=== PATIENT | male | born 1965 | race Caucasian/White ===

== ENCOUNTER 2019-12-26 09:18 | Emergency (ER) | payer OTHER, BC, SELFPAY ==
[2019-12-26 09:26] VITALS: BP 118/72; PULSE 88; RESP 14; TEMP 36.7; O2SAT 99
--- NOTE | 2019-12-26 10:04 | ED.UPPEXIN ---
HPI - Extremity Injury (Upper) General Chief Complaint: Extremity Injury, Upper Stated Complaint: right shoulder pain Time Seen by Provider: 12/26/19 09:36 Source: patient and RN notes reviewed Mode of arrival: ambulatory Limitations: no limitations History of Present Illness HPI narrative: Patient presents today with a 1 to 2-week history of right shoulder pain. Denies Injury, but states he does do heavy lifting at work. Denies numbness or tingling in the arm or hand. Currently rates his pain 8/10, which increases with movement. He has been taking ibuprofen with mild relief. MD complaint: injury to: right and shoulder Related Data Home Medications Medication Instructions Recorded Confirmed atorvastatin 80 mg PO DAILY 12/26/19 12/26/19 clopidogrel [Plavix] 75 mg PO DAILY 12/26/19 12/26/19 lisinopril 5 mg PO BID 12/26/19 12/26/19 nebivolol [Bystolic] 5 mg PO DAILY 12/26/19 12/26/19 rivaroxaban [Xarelto] 20 mg PO DAILY 12/26/19 12/26/19 Allergies Allergy/AdvReac Type Severity Reaction Status Date / Time No Known Allergies Allergy Verified 12/26/19 09:37 Review of Systems Review of Systems: Narrative: CONSTITUTIONAL: Denies body aches, fever, chills, or sweats. EYES: Denies visual changes, redness, or discharge. ENT: Denies rhinorrhea, congestion, sore throat, or otalgia. CARDIOVASCULAR: Denies chest pain, palpitations, or edema. RESPIRATORY: Denies cough or dyspnea. GASTROINTESTINAL: Denies abdominal pain, nausea, vomiting, or diarrhea. GENITOURINARY: Denies dysuria or hematuria. SKIN: Denies rash, itching, or wounds. MUSCULOSKELETAL: Denies back pain, or myalgia. +Right shoulder pain NEUROLOGIC: Denies headache, numbness, tingling, or weakness. PSYCH: Denies depression or anxiety. PMFSH Comments At time of signature, I have reviewed and agree with nursing past medical, surgical, social and family history unless otherwise noted. Please see nursing chart for further information. There is no relevant family history pertinent to the presenting complaint Exam Narrative: Exam Narrative: GENERAL: Well-appearing, well-nourished, and in no acute distress. HEAD: Normocephalic, atraumatic. EYES: EOMI. No redness or drainage. ENT: Mucous membranes pink and moist. NECK: Normal AROM with mild increase pain to right neck. Supple. No lymphadenopathy. No bony Tenderness of the cervical spine. Right paraspinal muscle tenderness. CHEST: No respiratory distress. EXTREMITIES:Right shoulder: Right superior trapezius tenderness to the shoulder area, extending to the Scapular edge. No swelling or ecchymosis noted full range of motion of the shoulder with slight increased pain. Distal sensation intact. Capillary refill normal. Radial pulse normal. Handgrip equal and strong. SKIN: Warm, dry, no rash. Capillary refill normal. Normal skin turgor. NEURO: No focal deficits. Alert and oriented x3. Gait steady. PSYCH: Normal affect. No signs of depression or anxiety. Course Vital Signs Vital signs: Vital Signs Temperature 98.0 F 12/26/19 09:26 Pulse Rate 88 12/26/19 09:26 Respiratory Rate 14 12/26/19 09:26 Blood Pressure 118/72 12/26/19 09:26 Pulse Oximetry 99 12/26/19 09:26 Temperature 98.0 F 12/26/19 09:26 Pulse Rate 88 12/26/19 09:26 Respiratory Rate 14 12/26/19 09:26 Blood Pressure 118/72 12/26/19 09:26 Pulse Oximetry 99 12/26/19 09:26 Reviewed MDM - Extremity Injury (Upper) Differential Diagnosis Differential diagnosis: Likely other (Cervical radiculopathy, shoulder strain, tendinitis, trapezius strain) Critical Care Time Critical Care Time Critical Care Time: No Discharge Plan Discharge Clinical Impression: Strain of right trapezius muscle Qualifiers: Encounter type: initial encounter Qualified Code(s): S46.811A - Strain of other muscles, fascia and tendons at shoulder and upper arm level, right arm, initial encounter Patient Disposition: Home, Self-Care Cond
== END 2019-12-26 10:09 | disposition home or self-care (01) ==
PROVIDERS: Emergency Provider Nurse Practitioner; PCP Internal Medicine
DX: S46.811A Strain of other muscles, fascia and tendons at shoulder and upper arm level, right arm, initial encounter (principal); X58.XXXA Exposure to other specified factors, initial encounter; I25.10 Atherosclerotic heart disease of native coronary artery without angina pectoris; E78.00 Pure hypercholesterolemia, unspecified; I10 Essential (primary) hypertension; I25.2 Old myocardial infarction; Z95.5 Presence of coronary angioplasty implant and graft; Z95.820 Peripheral vascular angioplasty status with implants and grafts
CPT/HCPCS: 99213; G0463

== ENCOUNTER 2022-12-02 10:18 | Outpatient (CLI) | payer OTHER, SELFPAY ==
[2022-12-02 18:38] LABS: Basophils Absolute Auto 0.1 K/mm3 (0.0-0.1); Basophils Percent Auto 0.9 % (0.2-1.2); Eosinophils Absolute Auto 0.2 K/mm3 (0-0.3); Eosinophils Percent Auto 2.1 % (0-4.4); Hematocrit 49.9 % (42.0-52.0); Hemoglobin 15.6 g/dL (14.0-18.0); Immature Granulocyte Absolute 0.15 K/mm3 (0.00-0.031); Immature Granulocyte Percent A 1.8 % (0-0.5); Lymphocytes Absolute Auto 1.84 K/mm3 (0.9-3.2); Lymphocytes Percent Auto 22.6 % (18.3-44.2); Mean Corpuscular HGB Conc 31.3 g/dl (32-36); Mean Corpuscular Hemoglobin 29.1 pg (26-34); Mean Corpuscular Volume 92.9 fl (80-100); Monocytes Absolute Auto 0.5 K/mm3 (0.1-0.6); Monocytes Percent Auto 6.1 % (2.6-8.5); Neutrophils Absolute Auto 5.4 K/mm3 (1.3-6.7); Neutrophils Percent Auto 66.5 % (45.5-73.1); Platelet Count Result 201 k/mm3 (150-375); Red Blood Count 5.37 M/mm3 (4.6-6.20); Red Cell Distribution Width 16.6 % (11.5-14.5); White Blood Count 8.1 K/mm3 (4.5-10.0)
[2022-12-02 19:56] LABS: Alanine Aminotransferase 40 U/L (6-50); Albumin Level 4.1 g/dL (3.5-5.1); Alkaline Phosphatase 114 U/L (38-126); Anion Gap 9 mmol/L (8-16); Aspartate Amino Transferase 109 U/L (17-59); Bilirubin,Total 0.8 mg/dL (0.2-1.3); Blood Urea Nitrogen 10 mg/dL (9-20); Calcium 9.6 mg/dL (8.4-10.2); Carbon Dioxide 30 mmol/L (22-30); Chloride 102 mmol/L (98-107); Cholesterol 79 mg/dL (0-200); Estimated Glomerular Filt Rate > 60; Glucose 75 mg/dL (65-110); HDL Direct 18 mg/dL; Potassium 4.7 mmol/L (3.4-5.0); Sodium 141 mmol/L (137-145); Triglycerides 161 mg/dL (<150)
[2022-12-02 20:07] LABS: LDL Cholesterol Direct 41 mg/dL
[2022-12-02 20:18] LABS: Hemoglobin A1C 4.9 % (<5.7)
== END 2022-12-02 10:19 | disposition home or self-care (01) ==
LOC: ANHBWCLAB 10:20
PROVIDERS: PCP Nurse Practitioner Adult Health; Visit Provider Nurse Practitioner Adult Health
DX: I10 Essential (primary) hypertension (principal); I25.10 Atherosclerotic heart disease of native coronary artery without angina pectoris
CPT/HCPCS: 36415; 80048; 80061; 80076; 83036; 85025

== ENCOUNTER 2023-03-12 01:31 | Day surgery (SDC) | payer OTHER, SELFPAY ==
[2023-03-02 13:27] VITALS: BMI 30.4
--- NOTE | 2023-03-02 13:53 | PC.NURSE ---
Spoke with _PATIENT____ regarding medication _XARELTO AND PLAVIX____. Pt. verbalizes understanding that the last dose of _XARELTO 03/09/2023_PLAVIX 03/07/2023____pt. does not need to hold Aspirin, and the Endoscopist will instruct them when to restart after the procedure.
--- NOTE | 2023-03-10 10:23 | SUR.PREOP ---
Patient called regarding upcoming procedure. Reviewed preop instructions, appointment times, and procedure prep.
[2023-03-12 09:18] VITALS: BP 126/71; PULSE 88; RESP 20; TEMP 36.2; O2SAT 98
[2023-03-12] MEDS: LACTATED RINGERS 1,000 ML 150 ML IV CONT (09:27)
--- NOTE | 2023-03-12 10:13 | PM.HPGS ---
History of Present Illness History of Present Illness Consent: Risks, benefits, and alternatives have been discussed and questions answered. Patient agrees to proceed with procedure. Chief complaint: Hemorrhage of anus/rectum,Other specified haemorrh Narrative: Mynor Joyner is a 57 year old male with personal history of hemorrhoids when had colonoscopy 5 years ago, intermittent bleeding after BM, tried OTC products Review of Systems Constitutional: Constitutional: Denies headache(s) and Denies weakness Eyes: Eyes: Denies blurry vision ENT: Reports Normal hearing present, Denies headache(s) and Denies neck pain Cardiovascular: Cardiovascular: Denies chest pain and Denies dyspnea Respiratory: Respiratory: Denies dyspnea Gastrointestinal: Gastrointestinal: Reports no additional gastrointestinal complaints Genitourinary: Genitourinary: Denies dysuria Musculoskeletal: Musculoskeletal: Denies neck pain Integumentary/Breasts: Skin/Breast: Denies dry skin Neurologic: Reports Normal hearing present, Denies headache(s) and Denies weakness Psychiatric: Psychiatric: Denies anxiety Endocrine: Endocrine: Denies change in body appearance Hematologic/Lymphatic: Hematologic/Lymphatic: Denies easy bleeding Allergic/Immunologic: Allergic/Immunologic: Denies urticaria PMFSH Past Medical History Medical History (Updated 01/28/23 @ 15:55 by Edilma Major, 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) CAD (coronary atherosclerotic disease) HTN (hypertension) Hx of colonic polyp Internal hemorrhoid, bleeding Myocardial infarction acute Rectal bleeding Rectal pressure Family History Family History Father History of ETOH abuse Heart disease Mother Heart disease Cancer Social History Social History Smoking packs per day: 1.5 Smoking cigarettes per day: 30.0 Years smoked: 38 Smoking pack-years: 57.00 Smoking status: Current every day smoker Tobacco type: cigarettes Additional smoking assessment comments: CURRENTLY DOWN TO 0.5PK/DAY TRYING TO QUIT Alcohol intake: current Substance use: never Lack of Transportation: No Lack of Food: Never True Current Housing: I Have Housing Concerned About Future Housing: No Difficulty Paying Gas/Electric Bills: No Difficulty Paying for Meds: No Currently Unemployed: No Education: High School Diploma/GED Difficulty w/ Childcare or Family Care: No Living arrangements: with family Occupation/Education: occupation Additional occupation/education comments: [employer] Spiritual care concerns: No Meds Home Medications and Allergies Home Medications Medication Instructions Recorded Confirmed Type atorvastatin 80 mg tablet 80 mg PO DAILY 12/26/19 03/02/23 History clopidogrel 75 mg tablet (Plavix) 75 mg PO DAILY 12/26/19 03/12/23 History rivaroxaban 20 mg tablet (Xarelto) 20 mg PO DAILY 12/26/19 03/12/23 History Aspirin 81 mg BYMOUTH DAILY 12/02/22 03/02/23 History lisinopril 20 mg tablet 20 mg PO BID 12/02/22 03/02/23 History metoprolol succinate 25 mg 25 mg PO DAILY 12/02/22 03/02/23 History tablet,extended release 24 hr tadalafil 5 mg tablet (Cialis) 5 mg PO DAILY PRN sexual activity 12/31/22 03/02/23 Rx #30 tabs Allergies Allergy/AdvReac Type Severity Reaction Status Date / Time No Known Allergies Allergy Verified 03/12/23 09:16 Vital Signs Vital Signs - 24 hr 03/12/23 09:18 Temperature 97.1 F L Pulse Rate 88 Respiratory Rate 20 Blood Pressure 126/71 Pulse Oximetry 98 Oxygen Delivery Room Air Exam Const: General: comfortable and no acute distress HENMT: Face/Nose/Sinus: Normal nares present Eyes: General: appearance normal, both eyes and all related structures Neck: Neck: no JVD Resp: Auscultation: clear to auscultation bilaterally Cardio: Rate: regular rate Rhythm: regular rhythm GI: Inspection:
--- NOTE | 2023-03-12 10:15 | WPDANESEPPF ---
Anes - Initial Pre Proc Eval Procedure: Operation Date: 03/12/23 10:30 Proposed Procedures p Colonoscopy - Roel Griffith MD s [facility] Hemorrhoid Treatment - Roel Griffith MD Date/Time: 03/12/23 10:15 Surgeon: Roel Griffith MD Pre Op Diagnosis: Hemorrhage of anus/rectum,Other specified haemorrh Patient Data Age: 57 Gender: M Height: 1.8 m Weight: 93 kg Last Vital Signs Temp 97.1 F L 03/12/23 09:18 Pulse 88 03/12/23 09:18 Resp 20 03/12/23 09:18 BP 126/71 03/12/23 09:18 Pulse Ox 98 03/12/23 09:18 O2 Del Method Room Air 03/12/23 09:18 Allergies Allergy/AdvReac Type Severity Reaction Status Date / Time No Known Allergies Allergy Verified 03/12/23 09:16 Home Medications Medication Instructions Recorded Confirmed Type atorvastatin 80 mg tablet 80 mg PO DAILY 12/26/19 03/02/23 History clopidogrel 75 mg tablet (Plavix) 75 mg PO DAILY 12/26/19 03/12/23 History rivaroxaban 20 mg tablet (Xarelto) 20 mg PO DAILY 12/26/19 03/12/23 History Aspirin 81 mg BYMOUTH DAILY 12/02/22 03/02/23 History lisinopril 20 mg tablet 20 mg PO BID 12/02/22 03/02/23 History metoprolol succinate 25 mg 25 mg PO DAILY 12/02/22 03/02/23 History tablet,extended release 24 hr tadalafil 5 mg tablet (Cialis) 5 mg PO DAILY PRN sexual activity 12/31/22 03/02/23 Rx #30 tabs Patient hx anesthesia problems: none Family hx anesthesia problems: none Results Review: All pre-operative results and documents have been reviewed as part of the pre-operative evaluation. [facility] Past Medical History Medical History (Updated 01/28/23 @ 15:55 by Edilma Major APRN) CAD (coronary atherosclerotic disease) HTN (hypertension) Hx of colonic polyp Internal hemorrhoid, bleeding Myocardial infarction acute Rectal bleeding Rectal pressure Family History Family History Father History of ETOH abuse Heart disease Mother Heart disease Cancer Social History Social History Smoking packs per day: 1.5 Smoking cigarettes per day: 30.0 Years smoked: 38 Smoking pack-years: 57.00 Smoking status: Current every day smoker Tobacco type: cigarettes Additional smoking assessment comments: CURRENTLY DOWN TO 0.5PK/DAY TRYING TO QUIT Alcohol intake: current Substance use: never Lack of Transportation: No Lack of Food: Never True Current Housing: I Have Housing Concerned About Future Housing: No Difficulty Paying Gas/Electric Bills: No Difficulty Paying for Meds: No Currently Unemployed: No Education: High School Diploma/GED Difficulty w/ Childcare or Family Care: No Living arrangements: with family Occupation/Education: occupation Additional occupation/education comments: [employer] Spiritual care concerns: No Anes - Eval Final PreProcedure Day of Procedure 03/12/23 10:15 Patient weight: normal Heart: regular rate and rhythm Lungs: clear to auscultation Airway: Mallampati scale class II Neurological: alert and oriented Last oral intake: >/= 8 hours ASA classification: III Emergent: no Anesthetic plan: proceed Anesthesia type and monitoring: general GIVS and standard monitoring Results Review: All pre-operative results and documents have been reviewed as part of the pre-operative evaluation. Informed Consent: The patient's anesthetic plan and its attendant risks and benefits were discussed with the patient/family/POA. Questions were solicited and answers provided to the satisfaction of the patient/family/POA.
--- NOTE | 2023-03-12 10:31 | SUR.OPER ---
Colonoscopy end 1030 [facility] start 1035
--- NOTE | 2023-03-12 10:33 | W.PM.PROC2 ---
Procedure Note - Detailed Date of Procedure 03/12/23 Pre-op Diagnosis Hemorrhage of anus/rectum,Other specified haemorrh Post-op Diagnosis Same Procedure Performed IRC of internal hemorrhoids Surgeon Roel Griffith MD Anesthesia MAC (also had colonoscopy) Findings grade II internal hemorrhoids Description of Procedure used anoscope and found grade II internal hemorrhoids, no fissure, no bleeding. Then advanced IRC probe, hemorrhoids treated for 1.5 seconds x7
[2023-03-12 10:37] VITALS: BP 106/71; PULSE 76; RESP 12; O2SAT 96
[2023-03-12 10:47] VITALS: BP 119/84; PULSE 82; RESP 18; O2SAT 98
[2023-03-12 10:57] VITALS: BP 121/86; PULSE 75; RESP 22; O2SAT 97
== END 2023-03-12 11:15 | disposition home or self-care (01) ==
PROVIDERS: PCP Nurse Practitioner Adult Health; Visit Provider Internal Medicine Gastroenterology
PROC: 0DJD8ZZ Inspection of Lower Intestinal Tract, Via Natural or Artificial Opening Endoscopic (ICD-10-PCS; CPT 45378; principal; 2023-03-12 10:30)
PROC: (CPT 46930; 2023-03-12 10:30)
DX: Z12.11 Encounter for screening for malignant neoplasm of colon (principal); K63.5 Polyp of colon; K64.1 Second degree hemorrhoids; I25.10 Atherosclerotic heart disease of native coronary artery without angina pectoris; I10 Essential (primary) hypertension; I25.2 Old myocardial infarction; Z79.01 Long term (current) use of anticoagulants; Z79.02 Long term (current) use of antithrombotics/antiplatelets; F17.210 Nicotine dependence, cigarettes, uncomplicated
CPT/HCPCS: 45380; 88305; J2704; J7120

== ENCOUNTER 2023-06-10 16:16 | Outpatient (CLI) | payer OTHER, SELFPAY ==
[2023-06-10 19:14] LABS: Alanine Aminotransferase 47 U/L (6-50); Albumin Level 3.8 g/dL (3.5-5.1); Alkaline Phosphatase 107 U/L (38-126); Anion Gap 5 mmol/L (8-16); Aspartate Amino Transferase 104 U/L (17-59); Bilirubin,Total 1.2 mg/dL (0.2-1.3); Blood Urea Nitrogen 10 mg/dL (9-20); Calcium 9.1 mg/dL (8.4-10.2); Carbon Dioxide 30 mmol/L (22-30); Chloride 103 mmol/L (98-107); Cholesterol 76 mg/dL (0-200); Estimated Glomerular Filt Rate > 60; Glucose 96 mg/dL (65-110); HDL Direct 16 mg/dL; Potassium 3.6 mmol/L (3.4-5.0); Sodium 138 mmol/L (137-145); Triglycerides 149 mg/dL (<150)
[2023-06-10 19:25] LABS: LDL Cholesterol Direct 46 mg/dL
[2023-06-10 19:42] LABS: Basophils Percent Auto 0.7 % (0.2-1.2); Eosinophils Absolute Auto 0.2 K/mm3 (0-0.3); Eosinophils Percent Auto 3.7 % (0-4.4); Hematocrit 47.1 % (42.0-52.0); Hemoglobin 14.1 g/dL (14.0-18.0); Immature Granulocyte Absolute 0.05 K/mm3 (0.00-0.031); Immature Granulocyte Percent A 0.9 % (0-0.5); Lymphocytes Absolute Auto 1.22 K/mm3 (0.9-3.2); Lymphocytes Percent Auto 22.7 % (18.3-44.2); Mean Corpuscular HGB Conc 29.9 g/dl (32-36); Mean Corpuscular Hemoglobin 24.5 pg (26-34); Mean Corpuscular Volume 81.9 fl (80-100); Mean Platelet Volume 11.9 fl (7.4-10.4); Monocytes Absolute Auto 0.3 K/mm3 (0.1-0.6); Neutrophils Absolute Auto 3.6 K/mm3 (1.3-6.7); Platelet Count Result 193 k/mm3 (150-375); Red Blood Count 5.75 M/mm3 (4.6-6.20); Red Cell Distribution Width 19.6 % (11.5-14.5); White Blood Count 5.4 K/mm3 (4.5-10.0)
[2023-06-10 20:09] LABS: Anisocytosis 1+ (NORMAL); Hypochromasia 1+ (NORMAL); Large Platelets Present; Schistocytes None Seen (NORMAL)
== END 2023-06-10 16:17 | disposition home or self-care (01) ==
PROVIDERS: PCP Nurse Practitioner Adult Health; Visit Provider Nurse Practitioner Adult Health
DX: I10 Essential (primary) hypertension (principal)
CPT/HCPCS: 36415; 80053; 80061; 83735; 85025; 85055

== ENCOUNTER 2023-06-15 16:24 | Outpatient (CLI) | payer OTHER, SELFPAY ==
[2023-06-15 19:37] LABS: Iron 56 ug/dL (49-181)
[2023-06-15 19:47] LABS: Percent Iron Saturation 18 % (20-50)
== END 2023-06-15 16:25 | disposition home or self-care (01) ==
LOC: ANHBWCLAB 16:25
PROVIDERS: PCP Nurse Practitioner Adult Health; Visit Provider Nurse Practitioner Adult Health
DX: D64.9 Anemia, unspecified (principal)
CPT/HCPCS: 36415; 82728; 83540; 83550

== ENCOUNTER 2023-10-27 00:31 | Day surgery (SDC) | payer OTHER, SELFPAY ==
[2023-10-25 14:11] VITALS: BMI 29.3
--- NOTE | 2023-10-25 14:12 | PC.NURSE ---
Report to the Outpatient Waiting Room, entrance under the green pavilion located off [facility], at time _1200_ on date _[id number]_. Planned Procedure Time: _2pm_. Time changes happen often and if your time is changed the preop area will call you the afternoon before. - You and your visitor will be asked to self-screen and do not enter if you have any COVID symptoms. - A mask is optional within the hospital at this time. Clear liquids only on 10-25-, Nothing to eat or drink after midnight day of surgery. Take the following medications with a SIP of water the morning of surgery: __Metoprolol DO NOT STOP ANY OF YOUR OTHER PRESCRIPTION MEDICATIONS PRIOR TO SURGERY ?EXCEPT THE FOLLOWING Medications to discontinue per physician Plavix Date to take last dose___Ananth stopped this on [id number] Bisacodyl EC 5mg 2 tabs Wednesday and again Wednesday night. Fleets enema Wednesday night and again Wednesday morning. Please no make-up, nail mongolian, hairspray, perfume, deodorant, or body powder the day of surgery. No jewelry (including any body piercings) or valuables the day of surgery, leave them at home. Please take a shower or bath the night before, or the morning of, surgery with an antibacterial soap. Wear comfortable, loose fitting clothing. - Jewelry must be removed prior to entering the operating room. Rings and piercings that are not removed may be cut off. - The hospital will not accept responsibility for valuables. - Please leave all valuables, including medications, at home the day of surgery. If you are going home after surgery, a licensed otr tanker truck driver must drive you home. - NO public transportation without another adult if you receive anesthesia. - We recommend that an adult stay with you for 24 hours following discharge. - We also recommend that you do not drive, make important decision, drink alcoholic beverages, or take any drugs that were not prescribed by your health care provider for at least 24 hours after your discharge time. Follow any additional instructions given to you from your surgeon. If you or anyone in your household have experienced Covid symptoms in the past week, please notify your surgeon or the nurse liaison at the phone number below for possible testing. Telephone instructions given to __Mike___and asked if any additional questions and then verbalized understanding. Patient advised to call surgeon office or pre surgery nurse liaison [phone] if any additional questions.
[2023-10-27] VITALS (10 sets, daily range): BP systolic 102–133; BP diastolic 56–80; PULSE 72–80; RESP 14–18; TEMP 37.3; O2SAT 94–99
[2023-10-27] MEDS: LACTATED RINGERS 1,000 ML 30 ML IV CONT ×2 (12:49→15:26)
[2023-10-27] MEDS: ACETAMINOPHEN 500 MG TABLET 1000 MG PO (12:55)
[2023-10-27] MEDS: KETOROLAC 15 MG/ML VIAL (*BKC) IV PUSH (12:55)
--- NOTE | 2023-10-27 13:43 | WPDANESEPPF ---
Anes - Initial Pre Proc Eval Procedure: Operation Date: 10/27/23 14:00 Proposed Procedures p Excision Single Column Internal and External Hemorrhoids, Possible Anal Sphincterotomy - Brandon Juarez MD Date/Time: 10/27/23 13:43 Surgeon: Brandon Juarez MD Pre Op Diagnosis: internal and external hemorrhoids with bleeding, Patient Data Age: 58 Gender: M Height: 1.8 m Weight: 91.9 kg Last Vital Signs Temp 99.1 F 10/27/23 12:45 Pulse 77 10/27/23 12:45 Resp 18 10/27/23 12:45 BP 133/76 10/27/23 12:45 Pulse Ox 98 10/27/23 12:45 O2 Del Method Room Air 10/27/23 12:45 Allergies Allergy/AdvReac Type Severity Reaction Status Date / Time No Known Allergies Allergy Verified 10/27/23 12:04 Home Medications Medication Instructions Recorded Confirmed Type atorvastatin 80 mg tablet 80 mg PO DAILY 12/26/19 10/27/23 History clopidogrel 75 mg tablet (Plavix) 75 mg PO DAILY 12/26/19 10/27/23 History Aspirin 81 mg BYMOUTH DAILY 12/02/22 10/27/23 History lisinopril 20 mg tablet 20 mg PO BID 12/02/22 10/27/23 History metoprolol succinate 25 mg 25 mg PO DAILY 12/02/22 10/27/23 History tablet,extended release 24 hr tadalafil 5 mg tablet See Rx Instructions .Route 09/29/23 10/27/23 Rx .COMPLEX #30 tabs Patient hx anesthesia problems: none Family hx anesthesia problems: none Results Review: All pre-operative results and documents have been reviewed as part of the pre-operative evaluation. [facility] Past Medical History Medical History CAD (coronary atherosclerotic disease) HTN (hypertension) Hx of colonic polyp Internal hemorrhoid, bleeding Myocardial infarction acute Rectal bleeding Rectal pressure Surgical History Surgical History H/O heart artery stent H/O knee surgery Family History Family History Father History of ETOH abuse Heart disease Mother Heart disease Cancer Social History Social History Smoking packs per day: 1 Smoking cigarettes per day: 20.0 Years smoked: 40 Smoking pack-years: 40.00 Smoking status: Former smoker Tobacco type: cigarettes Additional smoking assessment comments: CURRENTLY DOWN TO 0.5PK/DAY TRYING TO QUIT Alcohol intake: current Substance use: never Do You Feel Safe in your Home?: Yes Lack of Transportation: No Lack of Food: Never True Current Housing: I Have Housing Concerned About Future Housing: No Difficulty Paying Gas/Electric Bills: No Difficulty Paying for Meds: No Currently Unemployed: No Education: Decline to Answer Difficulty w/ Childcare or Family Care: No Living arrangements: with family Occupation/Education: occupation Additional occupation/education comments: [employer] Spiritual care concerns: No Anes - Eval Final PreProcedure Day of Procedure 10/27/23 13:43 Patient weight: normal Heart: regular rate and rhythm Lungs: clear to auscultation and decreased breath sounds Airway: Mallampati scale class II and special considerations (Upper dentures. Lower teeth in very poor condition. ) Neurological: alert and oriented Last oral intake: >/= 8 hours ASA classification: III Emergent: no Anesthetic plan: proceed Anesthesia type and monitoring: general ETT and standard monitoring Results Review: All pre-operative results and documents have been reviewed as part of the pre-operative evaluation. S/p PTCA , PVD, DVT 2018, Smoker, 1/2 ppd today at 10 am, approx 50 pack years. Informed Consent: The patient's anesthetic plan and its attendant risks and benefits were discussed with the patient/family/POA. Questions were solicited and answers provided to the satisfaction of the patient/family/POA.
--- NOTE | 2023-10-27 14:28 | WPDHPUPDATE1 ---
History and Physical Update Update Date/Time: 10/27/23 14:28 History and Physical has been reviewed, including an updated exam of the patient. There are NO changes in the patient's condition. Risks, benefits, and alternatives have been discussed and questions answered. Patient agrees to proceed with procedure.
[2023-10-27] MEDS: ceFAZolin 2 GM/D5W 50 ML 2 GM/50 ML BAG IVPB (14:36)
[2023-10-27] MEDS: BUPIVACAINE/EPINEPHRINE 0.5% 10 ML VIAL 40 ML INFILTRATE (15:07)
--- NOTE | 2023-10-27 15:24 | P.OP_ITS ---
Procedure Note - Detailed Date of Procedure 10/27/23 Pre-op Diagnosis internal and external hemorrhoids with bleeding, Post-op Diagnosis Same Procedure Performed Rubber band ligation internal hemorrhoid, excision external hemorrhoid Surgeon Brandon Juarez MD Furniture Finisher Helper Zahira Cole RN Anesthesia General and Local Indications Patient was having rectal pain and bleeding. At his initial visit it appeared he had a midline fissure. Rather than surgery, he preferred to try bulk fiber supplements. These did relieve the pain but he continued to have rectal bleeding. He has a large intermittently prolapsed internal hemorrhoid with external hemorrhoid. He is taken to surgery now for excision of internal and external hemorrhoid in the left lateral position Findings The external hemorrhoid was wide-based and there was separation of the anal mucosa from the internal hemorrhoid. With the patient on anticoagulant and anti-platelet therapy and also a smoker, I chose to rubber-band ligate the internal hemorrhoid and only excise the external hemorrhoid. Anal sphincter tone was normal and there was no evidence of an anal fissure in the anal canal. Description of Procedure Patient was taken to surgery and induced into general anesthesia. He was placed in prone gudelia-knife position. Buttocks were taped apart. Prep and drape was carried out. A small Hill-Choi anoscope was introduced into the rectum and general inspection was carried out. There was no evidence of a fissure. There were no hemorrhoids other than those in the left lateral position. Findings were as above. I infiltrated local anesthesia using 20 cc subdermal and 20 cc intrasphincteric. I a rubber-band ligated the fairly large internal hemorrhoidal complex 1st. This appeared to work well. There was another small internal hemorrhoid which I rubber-band ligated as well. The wide-based left lateral external hemorrhoid was then excised as an ellipse. The wound was cauterized and then closed with interrupted 3-0 chromic suture. Hemostasis was good. I checked and the rubber bands were in good position. We dressed the rectum with Xeroform gauze fluffs and Promise panties. Patient was returned to a supine position, awakened and taken to recovery in good condition. Sponge needle counts were correct x2. Estimated Blood Loss -5 Pathology Yes (Left lateral external hemorrhoid) Complications None Condition Stable Disposition PACU [facility] Billing Surgery - Charge Forward: Surgery Billing (Rubber-band ligation internal hemorrhoid, excision of external hemorrhoid.)
--- NOTE | 2023-10-27 16:00 | SUR.PHASEI ---
Simple mask removed at 1600.
== END 2023-10-27 17:15 | disposition home or self-care (01) ==
PROVIDERS: PCP Nurse Practitioner Adult Health; Visit Provider Surgery
PROC: (CPT 46999; principal; 2023-10-27 14:00)
DX: K64.8 Other hemorrhoids (principal); K64.4 Residual hemorrhoidal skin tags; I10 Essential (primary) hypertension; I25.10 Atherosclerotic heart disease of native coronary artery without angina pectoris; Z79.02 Long term (current) use of antithrombotics/antiplatelets; Z79.82 Long term (current) use of aspirin; Z98.890 Other specified postprocedural states; Z95.5 Presence of coronary angioplasty implant and graft; Z87.891 Personal history of nicotine dependence; Z86.010 Personal history of colon polyps; Z80.9 Family history of malignant neoplasm, unspecified; Z82.49 Family history of ischemic heart disease and other diseases of the circulatory system
CPT/HCPCS: 46999; 88304; A9270; J0330; J0690; J1100; J1885; J2250; J2405; J2704; J3010; J7120

== ENCOUNTER 2023-12-13 16:04 | Outpatient (CLI) | payer OTHER, SELFPAY ==
[2023-12-13 18:53] LABS: Basophils Percent Auto 0.5 % (0.2-1.2); Eosinophils Absolute Auto 0.2 K/mm3 (0-0.3); Eosinophils Percent Auto 2.4 % (0-4.4); Hematocrit 50.9 % (42.0-52.0); Hemoglobin 15.3 g/dL (14.0-18.0); Immature Granulocyte Absolute 0.06 K/mm3 (0.00-0.031); Immature Granulocyte Percent A 0.8 % (0-0.5); Immature Platelet Fraction Pct 13.7 % (0.9-11.2); Lymphocytes Absolute Auto 1.57 K/mm3 (0.9-3.2); Lymphocytes Percent Auto 20.9 % (18.3-44.2); Mean Corpuscular HGB Conc 30.1 g/dl (32-36); Mean Corpuscular Hemoglobin 24.5 pg (26-34); Mean Corpuscular Volume 81.6 fl (80-100); Mean Platelet Volume 10.9 fl (7.4-10.4); Monocytes Absolute Auto 0.3 K/mm3 (0.1-0.6); Monocytes Percent Auto 3.5 % (2.6-8.5); Neutrophils Absolute Auto 5.4 K/mm3 (1.3-6.7); Neutrophils Percent Auto 71.9 % (45.5-73.1); Nucleated Red Blood Cells Perc 0.4 % (0.0-0.2); Platelet Count Result 208 k/mm3 (150-375); Red Blood Count 6.24 M/mm3 (4.6-6.20); Red Cell Distribution Width 19.4 % (11.5-14.5); White Blood Count 7.5 K/mm3 (4.5-10.0)
[2023-12-13 20:48] LABS: Prostate Specific Antigen 0.9 ng/mL (< OR = 4.0)
[2023-12-13 22:20] LABS: Alanine Aminotransferase 38 U/L (6-50); Albumin Level 4.2 g/dL (3.5-5.1); Alkaline Phosphatase 118 U/L (38-126); Anion Gap 8 mmol/L (4-12); Aspartate Amino Transferase 146 U/L (17-59); Bilirubin,Total 0.8 mg/dL (0.2-1.3); Blood Urea Nitrogen 9 mg/dL (9-20); Calcium 9.7 mg/dL (8.4-10.2); Carbon Dioxide 26 mmol/L (22-30); Chloride 105 mmol/L (98-107); Cholesterol 75 mg/dL (0-200); Estimated Glomerular Filt Rate > 60; Glucose 96 mg/dL (65-110); HDL Direct 19 mg/dL; Potassium 4.3 mmol/L (3.4-5.0); Sodium 139 mmol/L (137-145); Triglycerides 227 mg/dL (<150)
[2023-12-13 22:21] LABS: LDL Cholesterol Direct < 30 mg/dL
== END 2023-12-13 16:05 | disposition home or self-care (01) ==
PROVIDERS: PCP Nurse Practitioner Adult Health; Visit Provider Nurse Practitioner Adult Health
DX: Z12.5 Encounter for screening for malignant neoplasm of prostate (principal); I10 Essential (primary) hypertension
CPT/HCPCS: 36415; 80053; 80061; 83735; 84153; 85025; 85055; G0103

== ENCOUNTER 2023-12-29 08:06 | Outpatient (CLI) | payer OTHER, SELFPAY ==
--- NOTE | ~2023-12-29 | US_ITS ---
Limited Abdominal Sonogram: Real-time sonographic imaging of the right upper quadrant was performed. Clinical History: Abnormal serum enzyme levels Findings: The liver appears normal with no evidence of mass lesion or bile duct dilatation. Main por asa vein demonstrates normal direction of flow. The gallbladder is well distended, and appears normal with no evidence of gallstone or wall thickening. The common bile duct measures 4 mm. The visualize d pancreas, aorta, and IVC are unremarkable. Right kidney measures 11.1 cm in length, without hydrone phrosis or renal stone. Impression: No significant abnormality seen. Reviewed, dictated and finalized at location . Impression: No significant abnormality seen.
== END 2023-12-29 08:07 | disposition home or self-care (01) ==
PROVIDERS: PCP Nurse Practitioner Adult Health; Visit Provider Nurse Practitioner Adult Health
DX: R74.8 Abnormal levels of other serum enzymes (principal)
CPT/HCPCS: 76705

== ENCOUNTER 2024-06-13 06:29 | Outpatient (CLI) | payer OTHER, SELFPAY ==
--- OUTSIDE RECORDS SUMMARY | 2024-06-13 06:37 | XMS_ITS | Clinical Summary ---
Author Organization [facility] Address [address] [place] [address] Care Team Providers Care Director Life Insurance Name Role Phone Maciel Hairston MD Primary Care Provider [phone] Surya Snow MD Unavailable [phone] Allergies No known active allergies Medications atorvastatin (LIPITOR) 80 mg tablet Take 1 tablet (80 mg total) by mouth daily 90 tablet 3 12/20/2023 5 Active clopidogreL (PLAVIX) 75 mg tablet Take 1 tablet (75 mg total) by mouth daily 90 tablet 3 12/20/2023 5 Active lisinopriL (PRINIVIL,ZESTRI L) 20 mg tablet Take 1 tablet (20 mg total) by mouth 2 (two) times a day 180 tablet 3 12/20/2023 Active metoprolol XL (TOPROL-XL) 25 mg extended release tablet Take 1 tablet (25 mg total) by mouth daily 90 tablet 3 12/20/2023 Active aspirin 81 mg enteric coated tablet Take 1 tablet (81 mg total) by mouth daily 90 tablet 3 04/20/2024 6 Active Active Problems Problem Noted Date Diagnosed Date Coronary artery disease invo lving [place] coronary artery of [place] heart 06/15/2023 Assessment & Plan (12/20/2023 6:25 PM CDT): Asymptomatic, continue ASA/Plavix. Assessment & Plan (06/15/2023 3:47 PM CDT): Asymptomatic. Continue clopidogrel and metoprolol. Peripheral artery disease 06/15/2023 Assessment & Plan (06/15/2023 3:48 PM CDT): No claudication. He has been on Xarelto since his iliac stents in 2019. No change at this time. Mixed hyperlipidemia 06/15/2023 Assessment & Plan (12/20/2023 6:24 PM CDT): Labs pending, Continue atorvastatin. Assessment & Plan (06/15/2023 3:48 PM CDT): Laboratories checked by his primary care physician. Continue atorvastatin. Primary hypertension 06/15/2023 Assessment & Plan (12/20/2023 6:24 PM CDT): Continue metoprolol, and lisinopril Assessment & Plan (06/15/2023 3:48 PM CDT): Continue metoprolol and Xarelto. Surgical History Surgery Date Site/Laterality Comments CORONARY ANGIOPLASTY WITH STENT PLACEMENT 2002 & 2005 2 stents KNEE ARTHROSCOPY W/ MENISCECTOMY 04/05/2003 - 04/04/2004 COMBINED MEDIASTINOSCOPY AND BRONCHOSCOPY 08/31/2008 VATS CURTIS rescection, caseating granuloma APPENDECTOMY NECK SURGERY 04/05/2020 - 04/04/2021 C4 disc replacement HEMORROIDECTOMY 03/12/2023 Medical History Medical History Date Comments Coronary artery disease Myocardial infarction (HCC) Neck injury Work Incident Family History Medical History Relation Name Comments Alcohol abuse Father Heart attack Father Heart disease Father Cancer Mother Heart disease Mother Relation Name Status Comments Father Mother Social History Tobacco Use Types Packs/Day Years Used Date Smoking Tobacco: Former Cigarettes 1.5 30 Smokeless Tobacco: Former Personal Safety Answer Date Recorded Getting School Help Needed Not on file 05/31 Sex and Gender Information Value Date Recorded Sex Assigned at Not on file 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 Gender Identity Not on file Sexual Orientation Not on file Obstetrics History Last Filed Vital Signs Vital Sign Reading Time Taken Comments Blood Pressure 155/89 12/20/2023 2:41 PM CDT Pulse 73 12/20/2023 2:41 PM CDT Temperature 36.8 C (98.2 F) 09/29/2019 9:11 AM CDT Respiratory Rate 16 12/20/2023 2:41 PM CDT Oxygen Saturation 98% 12/20/2023 2:41 PM CDT Inhaled Oxygen Concentration - - Weight 93.9 kg (207 lb) 12/20/2023 2:41 PM CDT Height 180.3 cm (5' 11 ) 06/15/2023 2:51 PM CDT Body Mass Index 28.87 06/15/2023 2:51 PM CDT Plan of Treatment Health Maintenance Due Date Last Done Comments Depression Screening 1965 Hepatitis C Screening 1965 Prostate Cancer Screening-PSA 1965 DTaP/Tdap/Td Vaccine (1 - Tdap) 08/14/1978 Hepatitis B Screening 08/14/1985 Regular Well Visit/Exam 18-64 08/14/1985 Zoster Vaccine (1 of 2) 08/14/2017 Influenza Vaccine (#1) 2023 Colon Cancer Screening-Colonoscopy 01/18/2028 01/17/2018 Colon Cancer Screening-CT Colonography Discontinued 01/17/2018 Colon Cancer Screening-DNA Stool Discontinued 01/18/20 18 Colon Cancer Screening-FIT Discontinued 01/17/2018 Colon Cancer Screening-Sigmoidoscopy Discontinued 01/17/2018 Pneumococcal vaccine <65 Aged Out No longer eligible based on patient's age to complete this topic Procedures Procedure Name Priority Date/Time Associated Diagnosis Comments COLONOSCOPY 01/17/2018 11:35 AM CDT from Last 3 Months or Most Recently Relevant to Health Maintenance Results * COLONOSCOPY (01/17/2018 11:35 AM CDT) Anatomical Region Laterality Modality Other Narrative Procedure Note Maico Wright MD - 01/17/2018 11:35 AM CDT [facility] Patient Name: Mynor Joyner Procedure Date: 01/17/2018 11:35AM Date of : 1965 Admit Type: Outpatient Age: 52 Gender: Male Attending MD: Maico Wright MD Room: [facility] ENDOSCOPY ROOM 1 Note Status: Finalized Patient Profile: 52 WM, no family h/o colon cancer, screening. Healso noticing occasional bright red blood per rectum whenhe wipes with a tissue. Procedure: Colonoscopy Indications: This is the patient's first colonoscopy, Screeningfor colorectal malignant neoplasm Referring MD: Maciel Hairston MD Providers: Maico Wright MD Impression: - The entire examined colon is normal. - Internal hemorrhoids. - No specimens collected. Recommendation: - Repeat colonoscopy in 10 years for screeningpurposes. - Use fiber supplement daily (over the counter). - If bleeding per rectum is significant then IRC treatment of hemoorhoids can be arranged. Medicines: Monitored Anesthesia Care Complications: No immediate complications. Estimated Blood Loss: Estimated blood loss: none. Procedure: Pre-Anesthesia Assessment: - Prior to the procedure, a History and Physical was performed, and patient medications and allergieswere reviewed. The patient's tolerance of previous anesthesia was also reviewed. The risks and benefitsof the procedure and the sedation options and riskswere discussed with the patient. All questions were answered, and informed consent was obtained. Prior Anticoagulants: The patient has taken no previous anticoagulant or antiplatelet agents. ASA Grade Assessment: II - A patient with mild systemicdisease. After reviewing the risks and benefits, the patientwas deemed in satisfactory condition to undergo the procedure. The benefits, risks and alternatives of theprocedure and sedation were discussed and informed consent was obtained. All questions were answered. Please referto the signed informed consent document in the medical record. The scope was passed under direct vision.The Pediatric Colonoscope PCF-H190L [id number] was introduced through the anus and advanced to the the cecum, identified by appendiceal orifice andileocecal valve. The colonoscopy was performed without difficulty. The patient tolerated the procedurewell. The quality of the bowel preparation was good. Findings: The perianal and digital rectal examinations were normal. The colon (entire examined portion) appeared normal. No polyps and no mass lesions. Internal hemorrhoids were found during retroflexion. The hemorrhoids were medium-sized. Electronically signed by Maico Wright M.D. Maico Wright MD 01/17/2018 12:20:38 PM Number of Addenda: 0 Note Initiated On: 01/17/2018 11:35 AM Procedure Code(s): --- Professional --- 69673, Colonoscopy, flexible; diagnostic, including collection of specimen(s) by brushing or washing, when performed (separateprocedure) Diagnosis Code(s): --- Professional --- Z12.11, Encounter for screening for malignant neoplasm of colon K64.8, Other hemorrhoids CPT copyright 2017 [employer]. All rights reserved. The codes documented in this report are preliminary and upon medical education manager reviewmay be revised to meet current compliance requirements. Recognized by the [place] [employer] for promoting quality in endoscopy Maico Wright MD ENDOSCOPY PROCEDURES Final Result from Last 3 Months or Most Recently Relevant to Health Maintenance Insurance [facility] CHOICE PLUS ANTHEM ACCESS BLUE [place] BLUE [place] [facility] CHOICE PLUS Advance Directives For more information, please contact: [phone] * Full Code (Latest Code Status on File) Date Activated Date Inactivated Comments 06/09/2018 1:25 PM 06/10/2018 7:38 PM * Full Code Date Activated Date Inactivated Comments 01/17/2018 11:00 AM 01/17/2018 3:02 PM Healthcare Agents on File Name Relationship Healthcare Agent Relationshi p Communication Brook Joyner Spouse First Alternate Health Care Agent Care Teams Director Life Insurance Relationship Specialty Start Date End Date Maciel Hairston MD [address] [place] [address] PCP - General 11/18/17 Surya Snow MD [address] [place] [address] Consulting Physician Cardiology 06/10/18
--- OUTSIDE RECORDS SUMMARY | 2024-06-13 06:37 | XMS_ITS | Referral Summary ---
Author Organization [facility] Address [address] [place] [address] Care Team Providers Care Program Medical Director Name Role Phone Unavailable Primary Care Provider Unavailabl e Source Comments [facility],non-owned Affiliates and Associated Physician Practices is amultiple site organization consisting of ambulatory clinics and hospital sitesin [place], [place], [place] and [place]. This disclosure is being madepursuant to the Care Everywhere program and may not contain all information available regarding this patient. Last updated 17.[facility] Allergies No known active allergies Medications * Be aware that medications may not be up to date on this document. Alwaysverify current medications with the patient. Medication Sig Dispensed Refills Start Date End Date Status aspirin (ASPIRIN) 81 MG chew tablet Take 1 tablet by mouth once daily 100 tablet 5 03/07/2018 Active atorvastatin (LIPITOR) 80 MG tablet Take 1 tablet by mouth at bedtime 30 tablet 5 03/06/2018 Active lisinopril (PRINIVIL;ZESTRIL) 5 MG tablet Take 1 tablet by mouth once daily 30 tablet 5 03/07/2018 Active metoprolol tartrate (LOPRESSOR) 25 MG tablet Take 1 tablet by mouth 2 times daily 60 tablet 5 03/06/2018 Active clopidogrel (PLAVIX) 75 MG tablet Take 1 tablet by mouth once daily 30 tablet 5 03/07/2018 Active Active Problems Problem Noted Date Diagnosed Date Coronary artery disease invo lving [place] coronary artery of [place] heart 03/05/2018 Assessment & Plan (03/05/2018 2:35 AM LITIGATION SPECIALIST): Known problem. Pt not taking meds. Resolved Problems Problem Noted Date Diagnosed Date Resolved Date ST elevation myocardial infa rction involving left anterior descending (LAD) coronary artery 03/06/2018 03/06/2018 Acute coronary syndrome 03/05/2018 120 05/2017 Assessment & Plan (03/05/2018 2:35 AM LITIGATION SPECIALIST): Will take to matlab developer right away ACS (acute coronary syndrome) 03/05/2018 03/06/2018 Social History Tobacco Use Types Packs/Day Years Used Date Smoking Tobacco: Every Day Cigarettes Smokeless Tobacco: Never Tobacco Cessation:Ready to Q uit: No; Counseling Given: No Sex and Gender Information Value Date Recorded Sex Assigned at Not on file Gender Identity Not on file Sexual Orientation Not on file Last Filed Vital Signs Vital Sign Reading Time Taken Comments Blood Pressure 112/86 03/06/2018 12:00 PM LITIGATION SPECIALIST Pulse 74 03/06/2018 12:31 PM LITIGATION SPECIALIST Temperature 36.1 C (96.9 F) 03/06/2018 11:26 AM LITIGATION SPECIALIST Respiratory Rate 16 03/06/2018 12:3 1 PM LITIGATION SPECIALIST Oxygen Saturation 98% 03/06/2018 11: 26 AM LITIGATION SPECIALIST Inhaled Oxygen Concentration - - Weight 94.2 kg (207 lb 11.2 oz) 03/06/2018 3:00 AM LITIGATION SPECIALIST Height 167.6 cm (5' 6 ) 03/05/2018 2:31 AM LITIGATION SPECIALIST Body Mass Index 33.52 03/05/2018 2:31 AM LITIGATION SPECIALIST Functional Status Functional Status Response Date of Assess ment Is person deaf or have serious hearing difficult y? No 03/06/2018 Is person blind or have serious difficulty seein g? No 03/06/2018 Does person have serious dif ficulty walking/climbing stairs? No 03/06/2018 Does person have difficulty dressing/bathing? No 03/06/2018 Does person have difficulty doing errands alone? No 03/06/2018 Cognitive Status Response Date of Assessm ent Does person have difficulty concentrating/remembering/making decisions? No 03/06/2018 Plan of Treatment Not on file Advance Directives * Full Code (Latest Code Status on File) Date Activated Date Inactivated Comments 03/05/2018 3:26 AM 03/06/2018 3:08 PM
--- OUTSIDE RECORDS SUMMARY | 2024-06-13 06:37 | XMS_ITS | Clinical Summary ---
Author Organization [facility] Address [address] [place] [address] Care Team Providers Care Import/Export Agent Name Role Phone Unavailable Primary Care Provider Unavailabl e Source Comments [facility],non-owned Affiliates and Associated Physician Practices is amultiple site organization consisting of ambulatory clinics and hospital sitesin [place], [place], [place] and [place]. This disclosure is being madepursuant to the Care Everywhere program and may not contain all information available regarding this patient. Last updated 17.[facility] Allergies No known active allergies Medications * [...] Diagnosed Date Coronary artery disease invo lving [place] coronary artery of [place] heart 03/05/2018 Assessment & Plan (03/05/2018 2:35 AM PAPIER MACHE MOLDER): Known problem. Pt not taking meds. Resolved Problems Problem Noted Date Diagnosed Date Resolved Date ST elevation myocardial infa rction involving left anterior descending (LAD) coronary artery 03/06/2018 03/06/2018 Acute coronary syndrome 03/05/2018 12/0 05/2017 Assessment & Plan (03/05/2018 2:35 AM PAPIER MACHE MOLDER): Will take to lab scientist right away ACS (acute coronary syndrome) 03/05/2018 [...] Comments Blood Pressure 112/86 03/06/2018 12:00 PM PAPIER MACHE MOLDER Pulse 74 03/06/2018 12:31 PM PAPIER MACHE MOLDER Temperature 36.1 C (96.9 F) 03/06/2018 11:26 AM PAPIER MACHE MOLDER Respiratory Rate 16 03/06/2018 12:3 1 PM PAPIER MACHE MOLDER Oxygen Saturation 98% 03/06/2018 11: 26 AM PAPIER MACHE MOLDER Inhaled Oxygen Concentration - - Weight 94.2 kg (207 lb 11.2 oz) 03/06/2018 3:00 AM PAPIER MACHE MOLDER Height 167.6 cm (5' 6 ) 03/05/2018 2:31 AM PAPIER MACHE MOLDER Body Mass Index 33.52 03/05/2018 2:31 AM PAPIER MACHE MOLDER Plan of Treatment Health Maintenance Due Date Last Done Comments COLOGUARD (AGES 45-75) - COL ON CA SCREENING 1965 COLON MONITORING 1967 COLONOSCOPY - COLON CA SCREENING 1967 CT COLONOGRAPHY - COLON CA SCREENING 1965 Colorectal Cancer Screening 1965 FIT - COLON CA SCREENING 1967 FLEX SIG - COLON CA SCREENING 1967 HIV SCREENING 08/14/1982 HEPATITIS C SCREENING 08/10/1985 DTAP/TDAP/TD VACCINES (1 - Tdap) 08/14/1986 HEPATITIS B VACCINE (1 of 3 - 19+ 3-dose series) 08/14/1986 PNEUMOCOCCAL VACCINE 50+ (1 of 2 - PCV) 08/14/1986 PNEUMOCOCCAL VACCINE (1 of 2 - PCV) 08/14/1986 ZOSTER VACCINE (1 of 2) 08/14/2017 COVID-19 VACCINE ( - 2023-2 5 season) 2023 INFLUENZA VACCINE (#1) 2023 DEPRESSION SCREENING 04/05/2024 HIB VACCINE Aged Out No longer eligi ble based on patient's age to complete this topic HPV VACCINE Aged Out No longer eligi ble based on patient's age to complete this topic MENINGOCOCCAL (Group B) VACCINE Aged Out No longer eligible based on patient's age to complete this topic MENINGOCOCCAL VACCINE Aged Out No stuart sarita eligible based on patient's age to complete this topic Advance Directives * Full Code (Latest Code Status on File) Date Activated Date Inactivated Comments 03/05/2018 3:26 AM 03/06/2018 3:08 PM
--- OUTSIDE RECORDS SUMMARY | 2024-06-13 06:37 | XMS_ITS | Patient Health Summary ---
Author Organization [facility] Address [address] [place] [address] Care Team Providers Care Subsorter Name Role Phone Unavailable Primary Care Provider Unavailabl e Note from [facility],non-owned Affiliates and Associated Physician Practices is amultiple site organization consisting of ambulatory clinics and hospital sitesin [place], [place], [place] and [place]. This disclosure is being madepursuant to the Care Everywhere program and may not contain all information available regarding this patient. Last updated 17.[facility] [employer] Allergies No known active allergies Medications * Be aware that medications may not be up to date on this document. Alwaysverify current medications with the patient. * aspirin (ASPIRIN) 81 MG chew tablet(Started 03/07/2018) Take 1 tablet by mouth once daily 5 refills remaining * atorvastatin (LIPITOR) 80 MG tablet(Started 03/06/2018) Take 1 tablet by mouth at bedtime 5 refills remaining * lisinopril (PRINIVIL;ZESTRIL) 5 MG tablet(Started 03/07/2018) Take 1 tablet by mouth once daily 5 refills remaining * metoprolol tartrate (LOPRESSOR) 25 MG tablet(Started 03/06/2018) Take 1 tablet by mouth 2 times daily 5 refills remaining * clopidogrel (PLAVIX) 75 MG tablet(Started 03/07/2018) Take 1 tablet by mouth once daily 5 refills remaining Active Problems Problem Noted Date Diagnosed Date Coronary artery disease invo lving nenana coronary artery of nenana heart 03/05/2018 Resolved Problems Problem Noted Date Diagnosed Date Resolved Date ST elevation myocardial infa rction involving left anterior descending (LAD) coronary artery 03/06/2018 03/06/2018 Acute coronary syndrome 03/05/201805/2017 ACS (acute coronary syndrome) 03/05/2018 03/06/2018 Social [...] Comments Blood Pressure 112/86 03/06/2018 12:00 PM CANE SPLICER Pulse 74 03/06/2018 12:31 PM CANE SPLICER Temperature 36.1 C (96.9 F) 03/06/2018 11:26 AM CANE SPLICER Respiratory Rate 16 03/06/2018 12:3 1 PM CANE SPLICER Oxygen Saturation 98% 03/06/2018 11: 26 AM CANE SPLICER Inhaled Oxygen Concentration - - Weight 94.2 kg (207 lb 11.2 oz) 03/06/2018 3:00 AM CANE SPLICER Height 167.6 cm (5' 6 ) 03/05/2018 2:31 AM CANE SPLICER Body Mass Index 33.52 03/05/2018 2:31 AM CANE SPLICER Procedures * LAB RESULTS ORDER(Performed 12/02/2022) * ED CRITICAL CARE(Performed 03/18/2018) Performed for ACS (acute coronary syndrome) (HCC), ST elevation myocardial infarction involving left anterior descending (LAD) coronary artery (HCC) * CARDIAC RHYTHM STRIP ORDER(Performed 03/07/2018) * EKG 12-LEAD(Performed 03/06/2018) Performed for ST elevation myocardial infarction involving left anterior descending (LAD) coronary artery (HCC) * TROPONIN I(Performed 03/06/2018) * BASIC METABOLIC PANEL (CALCIUM TOTAL)(Performed 03/06/2018) * CBC W AUTO DIFFERENTIAL(Performed 03/06/2018) * TROPONIN I(Performed 03/05/2018) * CBC W AUTO DIFFERENTIAL(Performed 03/05/2018) * BASIC METABOLIC PANEL (CALCIUM TOTAL)(Performed 03/05/2018) * TROPONIN I(Performed 03/05/2018) * EKG 12-LEAD(Performed 03/05/2018) Performed for ST elevation myocardial infarction involving left anterior descending (LAD) coronary artery (HCC) * ACT - POCT (IP) BEAKER ASM(Performed 03/05/2018) * XR CHEST 1VW PORTABLE(Performed 03/05/2018) Performed for Chest pain, unspecified type * DIFFERENTIAL MANUAL(Performed 03/05/2018) * LIPASE BLOOD(Performed 03/05/2018) * D-DIMER(Performed 03/05/2018) * TROPONIN I(Performed 03/05/2018) * COMPREHENSIVE METABOLIC PANEL(Performed 03/05/2018) * CBC W AUTO DIFFERENTIAL(Performed 03/05/2018) * EKG 12-LEAD(Performed 03/05/2018) Performed for Chest pain, unspecified type * EKG 12-LEAD(Performed 03/05/2018) Performed for Chest pain, unspecified type * ECHOCARDIOGRAM 2D WITH DOPPLER(Performed 03/05/2018) Performed for ST elevation myocardial infarction involving left anterior descending (LAD) coronary artery (HCC) * CARDIAC CATH CONSULT(Performed 03/05/2018) * CARDIAC PROCEDURE ORDER(Performed 03/05/2018) Results * LAB RESULTS ORDER (12/02/2022) 12/02/2022 Narrative 12/02/2022 Ordered by an unspecified provider. Scanned Document LAB - THERAPEUTIC DR RODRÍGUEZ MONITORING ORDERABLES * ED CRITICAL CARE (03/18/2018 4:08 PM CANE SPLICER) Narrative Ebony Joseph MD - 03/18/2018 4:08 PM CANE SPLICER Ebony Joseph MD 03/18/2018 4:08 PM Critical Care Performed by: EBONY JOSEPH Authorized by: EBONY JOSEPH Critical care provider statement: Critical care time (minutes): 40 Critical care start time: 03/05/2018 1:20 AM Critical care end time: 03/05/2018 2:00 AM Critical care was necessary to treat or prevent imminent or life-threatening deterioration of the following conditions: Cardiac failure Critical care was time spent personally by me on the following activities: Discussions with consultants, evaluation of patient's response to treatment, examination of patient, obtaining history from patient or surrogate, ordering and performing treatments and interventions, ordering and review of laboratory studies, ordering and review of radiographic studies and re-evaluation of patient's condition I assumed direction of critical care for this patient from another provider in my specialty: no Ebony Joseph MD PROCEDURE/MINOR VALERIO GICAL ORDERABLES * CARDIAC RHYTHM STRIP ORDER (03/07/2018 12:47 PM CANE SPLICER) Narrative 03/07/2018 12:47 PM CANE SPLICER Ordered by an unspecified provider. Scanned Document CARDIAC SERVICES ORD ERABLES * EKG 12-LEAD (03/06/2018 6:43 AM CANE SPLICER) Only the most recent of4 resultswithin the time period is included. Ventricular Rate 71 BPM ASM MUSE Atrial Rate 71 BPM [facility] MUSE P-R Interval 156 ms [facility] MUSE QRS Duration ms 92 ms [facility] MUSE Q-T Interval ms 434 ms [facility] MUSE QTC Calculation (Bezet) 471 ms ASM MUSE Calculated P [place] 76 degrees ASM MUSE Calculated R [place] 84 degrees ASM MUSE Calculated T [place] 74 degrees [facility] MUSE Interpretation EKG Normal sinus rhythm Anterior infarct (cited on or before 05-MAR-2018 ) Inferior injury pattern Resolving Anterior MA with memorty T waves Abnormal ECG When compared with ECG of 05-MAR-2018 06:47, Serial changes of evolving Anterior infarct Present Confirmed by Juan REYES LARRY ([id number]) on 03/06/2018 8:23:31 AM [facility] 03/06/2018 6:43 AM CANE SPLICER 03/06/2018 8:23 AM CANE SPLICER Juan Jose Reyes DO ECG ORDERABLES [facility] * (ABNORMAL) TROPONIN I (03/06/2018 5:02 AM CANE SPLICER) Only the most recent of4 resultswithin the time period is included. Troponin I 19.324(HH) 0.000 - 0.299 ng/mL 03/06/2018 7:21 AM CANE SPLICER [facility] Blood BLOOD SPECIMEN / Unknown Lab Venipuncture / Unknown 03/06/2018 5:02 AM CANE SPLICER 03/06/2018 6:43 AM CANE SPLICER Narrative [facility] - 03/06/2018 7:21 AM CANE SPLICER < 0.03 ng/mL Negative; repeat testing in four to six hours if clinically indicated. 0.04 -0.29 ng/mL: Suspicious for myocardial injury. Serial measurements may be necessary to confirm or exclude the diagnosis of acute coronary syndrome. Repeat testing in four to six hours if indicated. 0.3 ng/mL or greater: Consistent with myocardial injury. Clinical and laboratory correlation recommended. Juan Jose Reyes DO LAB - CHEMISTRY [facility]ACH [facility]FF[facility] [address], [place] [address] [phone] * (ABNORMAL) CBC W AUTO DIFFERENTIAL (03/06/2018 5:02 AM CANE SPLICER) Only the most recent of3 resultswithin the time period is included. WBC 10.2 4.0 - 10.5 x10E9/L 03/06/2018 6:58 AM [facility] RBC 5.27 4.70 - 6.00 x10E12/L 03/06/2018 6:58 AM [facility] Hemoglobin 16.0 13.5 - 18.0 gm/dL 03/06/2018 6:58 AM [facility] Hematocrit 47.4 42.0 - 52.0 % 03/06/2018 6:58 AM [facility] MCV 89.9 78.0 - 100.0 fl 03/06/2018 6:58 AM [facility] MCH 30.4 27.0 - 31.0 pg 03/06/2018 6:58 AM [facility] MCHC 33.8 32.0 - 36.0 gm/dL 03/06/2018 6:58 AM [facility] RDW 14.0 11.5 - 14.0 % 03/06/2018 6:58 AM [facility] Platelet Count 213 150 - 450 x10E9/L 03/06/2018 6:58 AM [facility] MPV 11.3(H) 6.0 - 9.5 fl 03/06/2018 6:58 AM [facility] Neutrophil Absolute 6.68(H) 1.5 - 6.6 x10E9/L 03/06/2018 6:58 AM [facility] Lymphocytes Absolute 2.29 1.5 - 3.5 x10E9/L 03/06/2018 6:58 AM [facility] Monocytes Absolute 0.80 0 - 1 x10E9/L 03/06/2018 6:58 AM [facility] Eosinophils Absolute 0.29 0 - 0.7 x10E9/L 03/06/2018 6:58 AM [facility] Basophils Absolute 0.05 0 - 0.1 x10E9/L 03/06/2018 6:58 AM [facility] Immature Granulocytes Absolute 0.05 0.00 - 0.06 x10E9/L 03/06/2018 6:58 AM [facility] nRBC Absolute 0.00 x10E9/L 03/06/2018 6:58 AM [facility] Neutrophils % 65.7 % 03/06/2018 6:58 AM [facility] Lymphocytes % 22.5 % 03/06/2018 6:58 AM [facility] Monocytes % 7.9 % 03/06/2018 6:58 AM [facility] Eosinophils % 2.9 % 03/06/2018 6:58 AM [facility] Basophils % 0.5 % 03/06/2018 6:58 AM [facility] Immature Granulocytes 0.5 % 03/06/2018 6:58 AM [facility] nRBC Auto 0.0 % 03/06/2018 6:58 AM [facility] Blood BLOOD SPECIMEN / Unknown Lab Venipuncture / Unknown 03/06/2018 5:02 AM CANE SPLICER 03/06/2018 6:42 AM [facility] Juan Jose Reyes DO LAB - HEMATOLOGY ORD ERABLES [facility] [address], [place] [address] [phone] * (ABNORMAL) BASIC METABOLIC PANEL (CALCIUM TOTAL) (03/06/2018 5:02 AM [facility]) Only the most recent of2 resultswithin the time period is included. Sodium 140 136 - 145 mmol/L 03/06/2018 7:25 AM [facility] Potassium 3.9 3.5 - 5.1 mmol/L 03/06/2018 7:25 AM [facility] Chloride 109(H) 98 - 107 mmol/L 03/06/2018 7:25 AM [facility] CO2 22 22 - 29 mmol/L 03/06/2018 7:25 AM [facility] Anion Gap 9 9 - 16 mmol/L 03/06/2018 7:25 AM [facility] Glucose 99 70 - 105 mg/dL 03/06/2018 7:25 AM [facility] BUN 11 8.4 - 25.7 mg/dL 03/06/2018 7:25 AM [facility] Creatinine 0.80 0.72 - 1.25 mg/dL 03/06/2018 7:25 AM [facility] BUN/Creatinine Ratio 13.8 11.7 - 20.6 03/06/2018 7:25 AM [facility] Calcium 9.3 8.4 - 10.2 mg/dL 03/06/2018 7:25 AM [facility] Osmolality Calculated 270 260 - 286 mOsm/kg 03/06/2018 7:25 AM CANE SPLICER [facility] eGFR by MDRD >60 >60 mL/min/1.7 3m2 03/06/2018 7:25 AM CANE SPLICER [facility] eGFR by MDRD >60 >60 mL/min/1.7 3m2 03/06/2018 7:25 AM [facility] Blood BLOOD SPECIMEN / Unknown Lab Venipuncture / Unknown 03/06/2018 5:02 AM CANE SPLICER 03/06/2018 6:43 AM CANE SPLICER Narrative [facility] - 03/06/2018 7:25 AM CANE SPLICER ADA Comment: The [place] [employer] recommends a fasting glucose concentration of 99 mg/dL as the upper limit of normal. Note:EGFR Reference Ranges have been established for adults between the ages of 18 and 70. STAGES OF CHRONIC KIDNEY DISEASE Stage Description EGFR 1. Kidney damage with normal or increased EGFR > or =90 mL/min/1.73 m 2. Kidney damage with mildly decreased EGFR 60-89 mL/min/1.73 m 3. Moderately decreased EGFR 30-59 mL/min/1.73 m 4. Severely decreased EGFR 15-29 mL/min/1.73 m 5. Kidney Failure EGFR <15 mL/min/1.73 m Juan Jose Reyes DO LAB - CHEMISTRY ZACH JEFFERSON [facility] [address] [phone] * ACT - POCT (IP) VERONIKA [facility] (03/05/2018 5:22 AM CANE SPLICER) ACT POCT 132 170 Seconds [facility] TEST[facility] ACT Non-Heparinize d POCT 70 - 170 Seconds [facility] QC Verified Yes [facility] Blood BLOOD SPECIMEN / Unknown 03/05/2018 5:22 AM CANE SPLICER Juan Jose Reyes DO LAB - POINT OF CARE ORDERABLES [facility] POCT TESTING [address], [place] [address] [phone] * XR CHEST 1VW PORTABLE (03/05/2018 2:24 AM CANE SPLICER) Anatomical Region Laterality Modality Chest Radiographic Cailin ging 03/05/2018 2:34 AM CANE SPLICER Impressions 03/05/2018 2:34 AM CANE SPLICER 1. Slight linear opacity left base probably subsegmental atelectasis. Active infiltrate less likely. Follow-up recommended as clinically indicated. Narrative 03/05/2018 2:34 AM CANE SPLICER Study Date Time: 03/05/2018 02:09 Chest one view Comparison: None provided. Findings: Portable AP view of the chest submitted. Left base obscured by superimposed defibrillator pad. Slight linear opacities left base probably subsegmental atelectasis and vessels. Active infiltrate less likely. Follow-up recommended as clinically indicated. Mild pulmonary hyperinflation. No pneumothorax. Sharp lateral costophrenic angles. Normal heart size. No pulmonary vascular cephalization. Procedure Note Marj Benjamin MD - 03/05/2018 Study Date Time: 03/05/2018 02:09 Chest one view Comparison: None provided. Findings: Portable AP view of the chest submitted. Left base obscured by superimposed defibrillator pad. Slight linear opacities left base probably subsegmental atelectasis and vessels. Active infiltrate less likely. Follow-up recommended as clinically indicated. Mild pulmonary hyperinflation. No pneumothorax. Sharp lateral costophrenic angles. Normal heart size. No pulmonary vascular cephalization. IMPRESSION 1. Slight linear opacity left base probably subsegmental atelectasis. Active infiltrate less likely. Follow-up recommended as clinically indicated. Ebony Joseph MD DIAGNOSTIC IMAGING ORDERABLES * (ABNORMAL) D-DIMER (03/05/2018 1:58 AM CANE SPLICER) D-Dimer 0.60(H) <0.51 mg/L FEU 03/05/2018 3:55 AM CANE SPLICER [facility] Blood BLOOD SPECIMEN / Unknown Venipuncture / Unknown 03/05/2018 1:58 AM CANE SPLICER 03/05/2018 2:14 AM CANE SPLICER Narrative [facility] - 03/05/2018 3:55 AM CANE SPLICER The negative cut-off value has been determined to be 0.50 mg/L FEU. The negative cut-off value is a discriminate value used to distinguish between the presence or absence of a venous thromboembolism. Elevated D-Dimer levels, although suggestive of venous thromboembolism, are not diagnostic. Clinical correlation is required. Ebony Joseph MD LAB - COAGULATION O RDERABLES Performing Organization Address City/[facility]/ZIP Co de Phone Number [facility] [address] [phone] * (ABNORMAL) DIFFERENTIAL MANUAL (03/05/2018 1:58 AM [facility]) WBC Auto 13.4 x10E9/L 03/05/2018 3:07 AM [facility] Neutrophil % Manual 55 % 03/05/2018 3:07 AM [facility] Lymphocytes % Manual 30 % 03/05/2018 3:07 AM [facility] Monocytes % Manual 7 % 03/05/2018 3:07 AM [facility] Eosinophils % Manual 7 % 03/05/2018 3:07 AM [facility] Band % Manual 1 % 03/05/2018 3:07 AM [facility] Cells Counted 100 # cells 03/05/2018 3:07 AM [facility] Platelet Estimation Adequate platelets Normal, Adequate platelets 03/05/2018 3:07 AM [facility] RBC Morphology Normal 03/05/2018 3:07 AM [facility] WBC Morph Normal 03/05/2018 3:07 AM [facility] Large Platelets Few(A) None 03/05/2018 3:07 AM [facility] Blood BLOOD SPECIMEN / Unknown Venipuncture / Unknown 03/05/2018 1:58 AM CANE SPLICER 03/05/2018 2:14 AM CANE SPLICER Ebony Joseph MD LAB - HEMATOLOGY OR DERABLES [facility] [address], [place] [id number] [place] [address] * (ABNORMAL) COMPREHENSIVE METABOLIC PANEL (03/05/2018 1:58 AM [facility]) Sodium 141 136 - 145 mmol/L 03/05/2018 3:14 AM [facility] Potassium 3.7 3.5 - 5.1 mmol/L 03/05/2018 3:14 AM [facility] Chloride 106 98 - 107 mmol/L 03/05/2018 3:14 AM [facility] CO2 22 22 - 29 mmol/L 03/05/2018 3:14 AM [facility] Anion Gap 13 9 - 16 mmol/L 03/05/2018 3:14 AM [facility] Glucose 114(H) 70 - 105 mg/dL 03/05/2018 3:14 AM [facility] BUN 13 8.4 - 25.7 mg/dL 03/05/2018 3:14 AM [facility] Creatinine 0.84 0.72 - 1.25 mg/dL 03/05/2018 3:14 AM [facility] BUN/Creatinine Ratio 15.5 11.7 - 20.6 03/05/2018 3:14 AM [facility] Calcium 9.7 8.4 - 10.2 mg/dL 03/05/2018 3:14 AM [facility] Protein Total 7.2 6.4 - 8.3 gm/dL 03/05/2018 3:14 AM [facility] Albumin 4.6 3.5 - 5.0 gm/dL 03/05/2018 3:14 AM [facility] ALT 40 0 - 55 U/L 03/05/2018 3:14 AM [facility] AST 28 5 - 34 U/L 03/05/2018 3:14 AM [facility] Alkaline Phosphatase 100 40 - 150 U/L 03/05/2018 3:14 AM [facility] Bilirubin Total 0.5 0.2 - 1.2 mg/dL 03/05/2018 3:14 AM [facility] Calcium Adjusted 9.22 8.4 - 10.2 mg/dL 03/05/2018 3:14 AM [facility] Globulin Total 2.6 1.3 - 4.7 gm/dL 03/05/2018 3:14 AM [facility] Albumin/Globulin Ratio 1.8 1.1 - 2.2 03/05/2018 3:14 AM [facility] Osmolality Calculated 273 260 - 286 mOsm/kg 03/05/2018 3:14 AM CANE SPLICER [facility] eGFR by MDRD >60 >60 mL/min/1.7 3m2 03/05/2018 3:14 AM [facility] eGFR by MDRD >60 >60 mL/min/1.7 3m2 03/05/2018 3:14 AM [facility] Blood BLOOD SPECIMEN / Unknown Venipuncture / Unknown 03/05/2018 1:58 AM CANE SPLICER 03/05/2018 2:14 AM CANE SPLICER Narrative [facility] - 03/05/2018 3:14 AM CANE SPLICER ADA Comment: The [place] [employer] recommends a fasting glucose concentration of 99 mg/dL as the upper limit of normal. Note:EGFR Reference Ranges have been established for adults between the ages of 18 and 70. STAGES OF CHRONIC KIDNEY DISEASE Stage Description EGFR 1. Kidney damage with normal or increased EGFR > or =90 mL/min/1.73 m 2. Kidney damage with mildly decreased EGFR 60-89 mL/min/1.73 m 3. Moderately decreased EGFR 30-59 mL/min/1.73 m 4. Severely decreased EGFR 15-29 mL/min/1.73 m 5. Kidney Failure EGFR <15 mL/min/1.73 m Ebony Joseph MD LAB - CHEMISTRY ORD ERABLES [facility] [address] [phone] * LIPASE BLOOD (03/05/2018 1:58 AM CANE SPLICER) Lipase 19 8 - 78 U/L 03/05/2018 3:07 AM [facility] Blood BLOOD SPECIMEN / Unknown Venipuncture / Unknown 03/05/2018 1:58 AM CANE SPLICER 03/05/2018 2:14 AM CANE SPLICER Ebony Joseph MD LAB - CHEMISTRY ORD ERABLES [facility] [address] [phone] * CARDIAC CATH CONSULT (for Epic Reporting) (03/05/2018 12:00 AM CANE SPLICER) 03/05/2018 [facility] CARDIOLOGY - 03/05/2018 3:39 AM CANE SPLICER , Cardiovascular Catheterization Comprehensive Report Patient: MISHA JOYNER MR number: [id number] Study date: 03/05/2018 : 1965 Age: 52 years Gender: Male Height: 66.1 in Weight: 204.6 lb BSA: 2.02 m Cine ID: [id number] Test time: 02:51 - 03:26 Fluoro time: 6.7 min Diagnostic Contact Center Representative: JUAN JOSE REYES D.O. Bookkeeping Service Sales Agent: ELIZABETH CHAN RN Scrub: RT BRIAN(R)(M)(RVT)([facility]) Monitor: RT SARITA(R) Senior Maintenance Technician: JUAN JOSE REYES D.O. PROCEDURES PERFORMED: -- Right coronary angiography. -- Left heart catheterization with ventriculography. -- Left coronary angiography. -- Left Heart Cath/Cores/LV Gram. -- Diagnostic coronary flow reserve. -- Stent/PTCA-single coronary artery. -- Intervention on mid LAD: drug-eluting stent. SUMMARY: -- HEMODYNAMICS: Hemodynamic assessment demonstrates moderately elevated LVEDP. -- CARDIAC STRUCTURES: Analysis of regional contractile function demonstrated anterolateral hypokinesis and apical hypokinesis. EF calculated by contrast ventriculography was 45 %. -- 1ST LESION INTERVENTIONS: A drug-eluting stent was performed on the 100 % lesion in the mid LAD. Following intervention there was a 0 % residual stenosis. -- Summary: Pt had acute intra stent closure in the LAD and underwent PTCA and PRISCILA in distal stent with good result . LCX and RCA okay. LVEF 45% with anteroapical hypokinesis. LVEDP elevated. Had ventricular tachycardia once LAD open resolved with IV amiodarone. HEMODYNAMICS: Hemodynamic assessment demonstrates moderately elevated LVEDP. VENTRICLES: Analysis of regional contractile function demonstrated anterolateral hypokinesis and apical hypokinesis. EF calculated by contrast ventriculography was 45 %. CORONARY CIRCULATION: The coronary circulation is right dominant. LAD: There was a tubular 100 % stenosis in the middle third of the vessel segment, in-stent. Mid LAD: There was a 100 % stenosis. There was IKE grade 0 flow through the vessel (no flow). Circumflex: Normal. RCA: Normal. PROCEDURE: The risks and alternatives of the procedures and conscious sedation were explained to the patient and informed consent was obtained. The patient was brought to the track repair laborer and placed on the table. The planned puncture sites were prepped and draped in the usual sterile fashion. -- Right femoral artery access. The puncture site was infiltrated with 12 ml 1 % lidocaine. The vessel was accessed using the modified Seldinger technique, a wire was threaded into the vessel, and a SHEATH 6F X 11CM was advanced over the wire into the vessel. -- Right coronary artery angiography. A FR 4 CATH 5 FR catheter was advanced to the aorta and positioned in the vessel ostium under fluoroscopic guidance. Angiography was performed in multiple projections using power-assisted injection of contrast. -- Left heart catheterization. A PIGTAIL 5FR 155 catheter was advanced to the ascending aorta. After recording ascending aortic pressure, the catheter was advanced across the aortic valve and left ventricular pressure was recorded. Ventriculography was performed using power injection of contrast agent. Imaging was performed using an VIRK projection. -- Left coronary artery angiography. A VL 3.5 GUIDE 6FR catheter was advanced to the aorta and positioned in the vessel ostium under fluoroscopic guidance. Angiography was performed in multiple projections using power-assisted injection of contrast. -- Left Heart Cath/Cores/LV Gram. -- Coronary flow reserve in the lesion in the mid LAD. The vessel was entered with a VL 3.5 GUIDE 6FR guiding catheter. Based on the results of this study, the lesion was judged to be adequately treated and no additional intervention was warranted. -- Stent/PTCA-single coronary artery. LESION INTERVENTION: A drug-eluting stent was performed on the 100 % lesion in the mid LAD. Following intervention there was a 0 % residual stenosis. The intervention was performed at the site of a prior stent and intervention (unknown device). This was an ACC/AHA type C high risk lesion for intervention. There was IKE 0 flow before the procedure and IKE 3 flow after the procedure. There was no acute vessel closure. There was no perforation. There was no dissection. -- Sheath exchange. The sheath was exchanged for a SHEATH 6F X 11CM. -- Vessel setup was performed. A WIRE CHOICE EXTRA SUPPORT wire was used to cross the lesion. -- Balloon angioplasty was performed, using a TREK Balloon 2.50 x 12mm balloon, with 1 inflations and a maximum inflation pressure of 8 geovanny. During the procedure, the previous guider was changed for a VL 3.5 GUIDE 6FR guider. -- Sheath exchange. The sheath was exchanged for a SHEATH 6F X 11CM. -- Vessel setup was performed. A VL 3.5 GUIDE 6FR guiding catheter was used to cannulate the vessel. -- A Xience Alpine 3.50 x 12mm everolimus-eluting stent was placed across the lesion and deployed at a maximum inflation pressure of 12 geovanny. During the procedure, a new WIRE CHOICE EXTRA SUPPORT wire was advanced across the lesion. HEMOSTASIS: The sheath was sutured in place. Hemostasis was successful at the right femoral artery access site. EBL is less than 5mL. COMPLICATIONS: There were no adverse outcomes. NONE occurred during the track repair laborer visit. PROCEDURE COMPLETION: The patient tolerated the procedure well. TIMING: Test started at 02:51. Test concluded at 03:26. RADIATION EXPOSURE: Fluoroscopy time: 6.7 min. Fluoroscopy dose: 127.734 Syed. MEDIA: Cine ID [id number]. CONTRAST GIVEN: 117 ml Isovue 370. Prepared and signed by JUAN JOSE REYES D.O. Signed 03/05/2018 03:38:57 HEMODYNAMIC TABLES Pressures: Baseline Pressures: - HR: 84 Pressures: - Rhythm: Pressures: -- Aortic Pressure (S/D/M): --/--/55 Pressures: -- Left Ventricle (s/edp): 167/37/-- Outputs: Baseline Outputs: -- CALCULATIONS: Age in years: 52.56 Outputs: -- CALCULATIONS: Body Surface Area: 2.02 Outputs: -- CALCULATIONS: Height in cm: 168.00 Outputs: -- CALCULATIONS: Sex: Male Outputs: -- CALCULATIONS: Weight in k.00 Procedure Note Juan Jose Reyes DO - 03/05/2018 , Cardiovascular Catheterization Comprehensive Report Patient: MISHA JOYNER MR number: [id number] Study date: 03/05/2018 : 1965 Age: 52 years Gender: Male Height: 66.1 in Weight: 204.6 lb BSA: 2.02 m Cine ID: [id number] Test time: 02:51 - 03:26 Fluoro time: 6.7 min Diagnostic Contact Center Representative: JUAN JOSE REYES D.O. Bookkeeping Service Sales Agent: ELIZABETH CHAN RN Scrub: RT BRIAN(R)(M)([facility])([facility]) Monitor: RT SARITA(R) Senior Maintenance Technician: JUAN JOSE REYES D.O. PROCEDURES PERFORMED: -- Right coronary angiography. -- Left heart catheterization with ventriculography. -- Left coronary angiography. -- Left Heart Cath/Cores/LV Gram. -- Diagnostic coronary flow reserve. -- Stent/PTCA-single coronary artery. -- Intervention on mid LAD: drug-eluting stent. SUMMARY: -- HEMODYNAMICS: Hemodynamic assessment demonstrates moderately elevated LVEDP. -- CARDIAC STRUCTURES: Analysis of regional contractile function demonstrated anterolateral hypokinesis and apical hypokinesis. EF calculated by contrast ventriculography was 45 %. -- 1ST LESION INTERVENTIONS: A drug-eluting stent was performed on the 100 % lesion in the mid LAD. Following intervention there was a 0 % residual stenosis. -- Summary: Pt had acute intra stent closure in the LAD and underwent PTCA and PRISCILA in distal stent with good result . LCX and RCA okay. LVEF 45% with anteroapical hypokinesis. LVEDP elevated. Had ventricular tachycardia once LAD open resolved with IV amiodarone. HEMODYNAMICS: Hemodynamic assessment demonstrates moderately elevated LVEDP. VENTRICLES: Analysis of regional contractile function demonstrated anterolateral hypokinesis and apical hypokinesis. EF calculated by contrast ventriculography was 45 %. CORONARY CIRCULATION: The coronary circulation is right dominant. LAD: There was a tubular 100 % stenosis in the middle third of the vessel segment, in-stent. Mid LAD: There was a 100 % stenosis. There was IKE grade 0 flow through the vessel (no flow). Circumflex: Normal. RCA: Normal. PROCEDURE: The risks and alternatives of the procedures and conscious sedation were explained to the patient and informed consent was obtained. The patient was brought to the track repair laborer and placed on the table. The planned puncture sites were prepped and draped in the usual sterile fashion. -- Right femoral artery access. The puncture site was infiltrated with 12 ml 1 % lidocaine. The vessel was accessed using the modified Seldinger technique, a wire was threaded into the vessel, and a SHEATH 6F X 11CM was advanced over the wire into the vessel. -- Right coronary artery angiography. A FR 4 CATH 5 FR catheter was advanced to the aorta and positioned in the vessel ostium under fluoroscopic guidance. Angiography was performed in multiple projections using power-assisted injection of contrast. -- Left heart catheterization. A PIGTAIL 5FR 155 catheter was advanced to the ascending aorta. After recording ascending aortic pressure, the catheter was advanced across the aortic valve and left ventricular pressure was recorded. Ventriculography was performed using power injection of contrast agent. Imaging was performed using an VIRK projection. -- Left coronary artery angiography. A VL 3.5 GUIDE 6FR catheter was advanced to the aorta and positioned in the vessel ostium under fluoroscopic guidance. Angiography was performed in multiple projections using power-assisted injection of contrast. -- Left Heart Cath/Cores/LV Gram. -- Coronary flow reserve in the lesion in the mid LAD. The vessel was entered with a VL 3.5 GUIDE 6FR guiding catheter. Based on the results of this study, the lesion was judged to be adequately treated and no additional intervention was warranted. -- Stent/PTCA-single coronary artery. LESION INTERVENTION: A drug-eluting stent was performed on the 100 % lesion in the mid LAD. Following intervention there was a 0 % residual stenosis. The intervention was performed at the site of a prior stent and intervention (unknown device). This was an ACC/AHA type C high risk lesion for intervention. There was IKE 0 flow before the procedure and IKE 3 flow after the procedure. There was no acute vessel closure. There was no perforation. There was no dissection. -- Sheath exchange. The sheath was exchanged for a SHEATH 6F X 11CM. -- Vessel setup was performed. A WIRE CHOICE EXTRA SUPPORT wire was used to cross the lesion. -- Balloon angioplasty was performed, using a TREK Balloon 2.50 x 12mm balloon, with 1 inflations and a maximum inflation pressure of 8 geovanny. During the procedure, the previous guider was changed for a VL 3.5 GUIDE 6FR guider. -- Sheath exchange. The sheath was exchanged for a SHEATH 6F X 11CM. -- Vessel setup was performed. A VL 3.5 GUIDE 6FR guiding catheter was used to cannulate the vessel. -- A Xience Alpine 3.50 x 12mm everolimus-eluting stent was placed across the lesion and deployed at a maximum inflation pressure of 12 geovanny. During the procedure, a new WIRE CHOICE EXTRA SUPPORT wire was advanced across the lesion. HEMOSTASIS: The sheath was sutured in place. Hemostasis was successful at the right femoral artery access site. EBL is less than 5mL. COMPLICATIONS: There were no adverse outcomes. NONE occurred during the track repair laborer visit. PROCEDURE COMPLETION: The patient tolerated the procedure well. TIMING: Test started at 02:51. Test concluded at 03:26. RADIATION EXPOSURE: Fluoroscopy time: 6.7 min. Fluoroscopy dose: 127.734 Syed. MEDIA: Cine ID [id number]. CONTRAST GIVEN: 117 ml Isovue 370. Prepared and signed by JUAN JOSE REYES D.O. Signed 03/05/2018 03:38:57 HEMODYNAMIC TABLES Pressures: Baseline Pressures: - HR: 84 Pressures: - Rhythm: Pressures: -- Aortic Pressure (S/D/M): --/--/55 Pressures: -- Left Ventricle (s/edp): 167/37/-- Outputs: Baseline Outputs: -- CALCULATIONS: Age in years: 52.56 Outputs: -- CALCULATIONS: Body Surface Area: 2.02 Outputs: -- CALCULATIONS: Height in cm: 168.00 Outputs: -- CALCULATIONS: Sex: Male Outputs: -- CALCULATIONS: Weight in k.00 Juan Jose Reyes DO ECHO ORDERABLES [facility] * CARDIAC PROCEDURE ORDER (03/05/2018) Scanned Document CARDIAC SERVICES ORD ERABLES * ECHOCARDIOGRAM 2D WITH DOPPLER (03/05/2018 12:00 AM CANE SPLICER) 03/05/2018 Narrative [facility] - 03/06/2018 12:18 PM CANE SPLICER , MISHA JOYNER [id number] Transthoracic Echocardiogram 06-Mar-2018 : 1965 Gender: Male Location: Bedside Height: 66 in Weight: 208.6 lb BSA: 2.04 m Study date: 06-Mar-2018 Study time: 11 45 Reading Physician: JUAN JOSE REYES D.O. Technologist: RT BRIAN(Brenda)(Evi)(T)([facility]) Ordering Physician: JUAN JOSE REYES D.O. CLINICAL QUESTION: Status post cardiac stent placement with ST elevation myocardial infarction involving LAD. HISTORY: Symptoms: severe, constricting mid-sternal pain. PRIOR HISTORY: Coronary artery disease. Risk factors: a history of current cigarette use (within the last month) and a family history of coronary artery disease. PRIOR PROCEDURES: Coronary stenting (2001 & 03/05/2018) to proximal to mid LAD. PROCEDURE: The procedure was performed at the bedside. The procedure was performed in the in-patient area. This study was performed on-call. B/P 127/85 The transthoracic approach was used. The study included complete 2D imaging, M-mode, complete spectral Doppler, and color Doppler. The heart rate was 65 bpm, at the start of the study. Images were obtained from the parasternal, apical, subcostal, and suprasternal notch acoustic windows. Image quality was good. SYSTEM MEASUREMENT TABLES 2D mode AoR Diam (2D): 2.8 cm LA Dimension (2D): 3.4 cm Left Atrium Systolic Volume Index; Method of Disks, Biplane; 2D mode;: 19.6 ml/m2 ESV (BP): 61 cm3 FS (2D-Teich): 22.7 % IVSd (2D): 1.4 cm IVSs (2D): 1.8 cm LVIDd (2D): 3.6 cm LVIDs (2D): 2.8 cm LVOT Area (2D): 2.8 cm LVPWd (2D): 2 cm LVPWs (2D): 2 cm Left Ventricular Ejection Fraction; Method of Disks, Biplane; 2D mode;: 46 % SI (BP): 25 ml/m2 RVIDd (2D): 3.4 cm Apical four chamber EF (A4C): 46 % LV MOD Diam; Recent value; End Diastole (A4C): 2.1 cm LV MOD Diam; Recent value; End Systole (A4C): 1.4 cm Left Ventricle diastolic major axis; Most recent value chosen; Method of Disks, Single Plane; 2D mode; Apical four chamber;: 8.4 cm Apical two chamber EF (A2C): 43 % LV MOD Diam; Recent value; End Diastole (A2C): 1.3 cm LV MOD Diam; Recent value; End Systole (A2C): 1.1 cm Left Ventricular Diastolic Area; Most recent value chosen; Method of Disks, Single Plane; 2D mode; Apical two chamber;: 29.7 cm Left Ventricular End Diastolic Volume; Most recent value chosen; Method of Disks, Single Plane; 2D mode; Apical two chamber;: 94 cm3 SV (A2C): 40 cm3 M mode AV Cusp Sep (MM): 2.2 cm Unspecified Scan Mode CV Orifice Area; Cont Eq by VTI: 2.5 cm Mean Grad; Antegrade Flow: 4 mm[Hg] Peak Grad; Mean; Antegrade Flow: 7 mm[Hg] VTI; Mean; Antegrade Flow: 27.1 cm Vmax; Antegrade Flow: 132 cm/s LVOT Diam: 1.9 cm LVOT Mean Grad: 2 mm[Hg] LVOT VTI: 23.9 cm LVOT Vmax: 112 cm/s SV (LVOT): 68 cm3 CV Orifice Area; Cont Eq by VTI: 2.6 cm DT; Mean; Antegrade Flow: 177 ms MV E/A: 1.2 MV Peak A Tigre: 66.6 cm/s MVA (PHT): 2.6 cm Mean Grad; Antegrade Flow: 1 mm[Hg] Peak Grad; Mean; Antegrade Flow: 3 mm[Hg] VTI; Mean; Antegrade Flow: 26.5 cm Vmax; Antegrade Flow: 92.4 cm/s Mean Grad; Antegrade Flow: 2 mm[Hg] Peak Grad; Mean; Antegrade Flow: 6 mm[Hg] VTI; Mean; Antegrade Flow: 25.5 cm Vmax; Antegrade Flow: 121 cm/s RVSP: 30 mm[Hg] Peak Grad; Mean; Regurgitant Flow: 20 mm[Hg] Vmax; Mean; Regurgitant Flow: 224 cm/s Vmax; Regurgitant Flow: 268 cm/s LEFT VENTRICLE: Ejection fraction was estimated to be 45 %. There was mild hypokinesis of the basal-mid anteroseptal and apical septal wall(s). AORTA: The root exhibited normal size. MITRAL VALVE: DOPPLER: There was mild regurgitation. LEFT ATRIUM: Size was normal. RIGHT VENTRICLE: The size was normal. Systolic function was normal. Wall thickness was normal. PULMONIC VALVE: Leaflets exhibited normal thickness, no calcification, and normal cuspal separation. DOPPLER: The transpulmonic velocity was within the normal range. There was no regurgitation. PULMONARY ARTERY: The size was normal. DOPPLER: Systolic pressure was within the normal range. TRICUSPID VALVE: DOPPLER: There was mild regurgitation. SYSTEMIC VEINS: SVC: The superior vena cava size was normal. PERICARDIUM: There was no pericardial effusion. The pericardium was normal in appearance. SUMMARY: - Clinical question: Status post cardiac stent placement with ST elevation myocardial infarction involving LAD. - Procedure information: B/P 127/ - Left ventricle: There was mild hypokinesis of the basal-mid anteroseptal and apical septal wall(s). - Mitral valve: There was mild regurgitation. - Tricuspid valve: There was mild regurgitation. - Pericardium: There was no pericardial effusion. - Summary: Distal septal and apical hypokinesis LVEF 45%. Mild mitral and tricupsid valve regurgitation No diastolic dysfunction. Prepared and signed by JUAN JOSE REYES D.O. Signed 06-Mar-2018 12:17:59 Procedure Note Juan Jose Reyes DO - 03/06/2018 , MONAWANDAMISHA [id number] Transthoracic Echocardiogram 06-Mar-2018 : 1965 Gender: Male Location: Bedside Height: 66 in Weight: 208.6 lb BSA: 2.04 m Study date: 06-Mar-2018 Study time: 11 45 Reading Physician: JUAN JOSE REYES D.O. Technologist: RT BRIAN(R)(M)(T)([facility]) Ordering Physician: JUAN JOSE REYES D.O. CLINICAL QUESTION: Status post cardiac stent placement with ST elevation myocardial infarction involving LAD. HISTORY: Symptoms: severe, constricting mid-sternal pain. PRIOR HISTORY: Coronary artery disease. Risk factors: a history of current cigarette use (within the last month) and a family history of coronary artery disease. PRIOR PROCEDURES: Coronary stenting (2001 & 03/05/2018) to proximal to mid LAD. PROCEDURE: The procedure was performed at the bedside. The procedure was performed in the in-patient area. This study was performed on-call. B/P The transthoracic approach was used. The study included complete 2D imaging, M-mode, complete spectral Doppler, and color Doppler. The heart rate was 65 bpm, at the start of the study. Images were obtained from the parasternal, apical, subcostal, and suprasternal notch acoustic windows. Image quality was good. SYSTEM MEASUREMENT TABLES 2D mode AoR Diam (2D): 2.8 cm LA Dimension (2D): 3.4 cm Left Atrium Systolic Volume Index; Method of Disks, Biplane; 2D mode;: 19.6 ml/m2 ESV (BP): 61 cm3 FS (2D-Teich): 22.7 % IVSd (2D): 1.4 cm IVSs (2D): 1.8 cm LVIDd (2D): 3.6 cm LVIDs (2D): 2.8 cm LVOT Area (2D): 2.8 cm LVPWd (2D): 2 cm LVPWs (2D): 2 cm Left Ventricular Ejection Fraction; Method of Disks, Biplane; 2D mode;: 46 % SI (BP): 25 ml/m2 RVIDd (2D): 3.4 cm Apical four chamber EF (A4C): 46 % LV MOD Diam; Recent value; End Diastole (A4C): 2.1 cm LV MOD Diam; Recent value; End Systole (A4C): 1.4 cm Left Ventricle diastolic major axis; Most recent value chosen; Method of Disks, Single Plane; 2D mode; Apical four chamber;: 8.4 cm Apical two chamber EF (A2C): 43 % LV MOD Diam; Recent value; End Diastole (A2C): 1.3 cm LV MOD Diam; Recent value; End Systole (A2C): 1.1 cm Left Ventricular Diastolic Area; Most recent value chosen; Method of Disks, Single Plane; 2D mode; Apical two chamber;: 29.7 cm Left Ventricular End Diastolic Volume; Most recent value chosen; Method of Disks, Single Plane; 2D mode; Apical two chamber;: 94 cm3 SV (A2C): 40 cm3 M mode AV Cusp Sep (MM): 2.2 cm Unspecified Scan Mode CV Orifice Area; Cont Eq by VTI: 2.5 cm Mean Grad; Antegrade Flow: 4 mm[Hg] Peak Grad; Mean; Antegrade Flow: 7 mm[Hg] VTI; Mean; Antegrade Flow: 27.1 cm Vmax; Antegrade Flow: 132 cm/s LVOT Diam: 1.9 cm LVOT Mean Grad: 2 mm[Hg] LVOT VTI: 23.9 cm LVOT Vmax: 112 cm/s SV (LVOT): 68 cm3 CV Orifice Area; Cont Eq by VTI: 2.6 cm DT; Mean; Antegrade Flow: 177 ms MV E/A: 1.2 MV Peak A Tigre: 66.6 cm/s MVA (PHT): 2.6 cm Mean Grad; Antegrade Flow: 1 mm[Hg] Peak Grad; Mean; Antegrade Flow: 3 mm[Hg] VTI; Mean; Antegrade Flow: 26.5 cm Vmax; Antegrade Flow: 92.4 cm/s Mean Grad; Antegrade Flow: 2 mm[Hg] Peak Grad; Mean; Antegrade Flow: 6 mm[Hg] VTI; Mean; Antegrade Flow: 25.5 cm Vmax; Antegrade Flow: 121 cm/s RVSP: 30 mm[Hg] Peak Grad; Mean; Regurgitant Flow: 20 mm[Hg] Vmax; Mean; Regurgitant Flow: 224 cm/s Vmax; Regurgitant Flow: 268 cm/s LEFT VENTRICLE: Ejection fraction was estimated to be 45 %. There was mild hypokinesis of the basal-mid anteroseptal and apical septal wall(s). AORTA: The root exhibited normal size. MITRAL VALVE: DOPPLER: There was mild regurgitation. LEFT ATRIUM: Size was normal. RIGHT VENTRICLE: The size was normal. Systolic function was normal. Wall thickness was normal. PULMONIC VALVE: Leaflets exhibited normal thickness, no calcification, and normal cuspal separation. DOPPLER: The transpulmonic velocity was within the normal range. There was no regurgitation. PULMONARY ARTERY: The size was normal. DOPPLER: Systolic pressure was within the normal range. TRICUSPID VALVE: DOPPLER: There was mild regurgitation. SYSTEMIC VEINS: SVC: The superior vena cava size was normal. PERICARDIUM: There was no pericardial effusion. The pericardium was normal in appearance. SUMMARY: - Clinical question: Status post cardiac stent placement with ST elevation myocardial infarction involving LAD. - Procedure information: B/P 127/85 - Left ventricle: There was mild hypokinesis of the basal-mid anteroseptal and apical septal wall(s). - Mitral valve: There was mild regurgitation. - Tricuspid valve: There was mild regurgitation. - Pericardium: There was no pericardial effusion. - Summary: Distal septal and apical hypokinesis LVEF 45%. Mild mitral and tricupsid valve regurgitation No diastolic dysfunction. Prepared and signed by JUAN JOSE REYES D.O. Signed 06-Mar-2018 12:17:59 Juan Jose Reyes DO ECHO ORDERABLES [facility]
--- OUTSIDE RECORDS SUMMARY | 2024-06-13 06:37 | XMS_ITS | Clinical Summary ---
Author Organization [facility] Address [address] [facility] [place] [address] Phone Care Team Providers Care Candy Wrapping Machine Operator Name Role Phone Unavailable Primary Care Provider Unavailabl e Social History Tobacco Use Types Packs/Day Years Used Date Smoking Tobacco: Never Assessed Sex and Gender Information Value Date Recorded Sex Assigned at Not on file Legal Sex Male 3:23 AM CREDIT AUTHORIZER Gender Identity Not on file Sexual Orientation Not on file Plan of Treatment Health Maintenance Due Date Last Done Comments Hepatitis C Virus (HCV) Screening 1965 TdaP Immunization 1965 Hepatitis B Immunization (1 of 3 - 19+ 3-dose series) 08/14/1986 Cologuard 08/14/2017 Immunochemical Fecal Occult Blood 08/14/2017 Pneumococcal Immunization (5 0+ years) (1 of 1 - PCV) 08/14/2017 Zoster Immunization (1 of 2) 08/14/2017 PSA Discussion 08/14/2022 Influenza Immunization (#1) 2023 SARS-COV-2 Immunization ( - season) 2023 Colonoscopy 01/18/2028 01/17/2018 Colorectal Cancer Screening 01/18/2028 Respiratory Syncytial Virus (RSV) Immunization (Adult) (1 - 1-dose 75+ series) 08/14/2042 01/17/2018 Meningococcal Immunization (ACWY) Aged Out No longer eligible based on patient's age to complete this topic Pneumococcal Immunization Combined Aged Out No longer eligible based on patient's age to complete this topic Rotavirus Immunization Aged Out No lo nger eligible based on patient's age to complete this topic
--- OUTSIDE RECORDS SUMMARY | 2024-06-13 06:37 | XMS_ITS | Referral Summary ---
Author Organization [facility] Address [address] [place] [address] Care Team Providers Care Electronic Warfare Specialist Name Role Phone Maciel Hairston MD Primary Care Provider [phone] Surya Snow MD Unavailable [phone] Allergies No known active allergies Medications [...] Diagnosed Date Coronary artery disease invo lving [place] coronary artery of [place] heart 06/15/2023 Assessment & Plan (12/20/2023 6:25 [...] 3:48 PM CDT): Continue metoprolol and Xarelto. Social History Tobacco Use Types Packs/Day Years Used Date Smoking Tobacco: Former Cigarettes 1.5 30 Smokeless Tobacco: Former Personal Safety Answer Date Recorded Getting School Help Needed Not on file 05/31 Sex and Gender Information Value Date Recorded Sex Assigned at Not on file Legal Sex Male 2:10 PM SANITATION ENGINEER Gender Identity Not on file Sexual Orientation [...] 06/15/2023 2:51 PM CDT Plan of Treatment Not on file Procedures Procedure Name Priority Date/Time Associated Diagnosis Comments COLONOSCOPY 01/17/2018 11:35 AM CDT from Last 3 Months or Most Recently Relevant to Health Maintenance Results * COLONOSCOPY (01/17/2018 11:35 AM CDT) Anatomical Region Laterality Modality Other Narrative Procedure Note Maico Wrgiht MD - 01/17/2018 11:35 AM CDT [facility] Patient Name: Mynor Joyner Procedure Date: 01/17/2018 11:35AM Date of : 1965 Admit Type: Outpatient Age: 52 Gender: Male Attending MD: Maico Wright MD Room: [facility] 1 Note Status: Finalized Patient [...] passed under direct vision.The Pediatric Colonoscope [id number] was introduced through the anus and advanced [...] 11:35 AM Procedure Code(s): --- Professional --- 78323, Colonoscopy, flexible; diagnostic, including collection of specimen(s) by brushing or washing, when performed (separateprocedure) Diagnosis Code(s): --- Professional --- Z12.11, Encounter for screening for malignant neoplasm of colon K64.8, Other hemorrhoids CPT copyright 2017 [employer]. All rights reserved. The codes documented in this report are preliminary and upon therapeutic mentor reviewmay be revised to meet current compliance requirements. Recognized by the [place] [employer] for promoting quality in endoscopy Maico Wright MD ENDOSCOPY PROCEDURES Final Result from Last 3 Months or Most Recently Relevant to Health Maintenance Insurance ANTHEM ACCESS G2 [employer] [place] BLUE ACCESS [facility] CHOICE PLUS Advance Directives For more information, please contact: [phone] * Full Code (Latest Code Status on File) Date Activated Date Inactivated Comments 06/09/2018 1:25 PM 06/10/2018 7:38 PM * Full Code Date Activated Date Inactivated Comments 01/17/2018 11:00 AM 01/17/2018 3:02 PM Healthcare Agents on File Name Relationship Healthcare Agent Relationshi p Communication Brook Joyner Spouse First Alternate Health Care Agent Care Teams Electronic Warfare Specialist Relationship Specialty Start Date End Date Maciel Hairston MD [address] [place] [address] PCP - General 11/18/17 Surya Snow MD [address] [place] [address] Consulting Physician Cardiology 06/10/18
--- OUTSIDE RECORDS SUMMARY | 2024-06-13 06:37 | XMS_ITS | Continuity of Care Document ---
Author Organization [facility] Address [address] [place] [address] Phone Care Team Providers Care Internet Marketing Strategist Name Role Phone Laureano Dillon MD Unavailable [...] Diagnoses Date Provider Providers Copied on Encounter [facility], [address], [place], [place], [id number], [place] tel:[phone] [facility] No Information Santana Tinsley. [address], [place], [place], [address], [place]. tel:[phone] Referring Provider: Leobardo Mccann, [address], [place], [address]. tel:[phone] [facility], [address], [place], [place], [address], [place] tel:[phone] [facility] No Information Joel Allen. [address], [place], [place], [id number], [place]. tel:[phone] Referring Provider: Leobardo Mccann, [address], [place], [address]. tel:[phone] Family History Family Member Type Diagnosis Age At Onset No Information Payers Payer name Insurance type Covered republican ID Authorkaciea pravin(s) [facility] [id number] Social History Type Description Quantity Date Captured [...]
[2024-06-13 19:21] LABS: Basophils Absolute Auto 0.1 K/mm3 (0.0-0.1); Basophils Percent Auto 1.2 % (0.2-1.2); Eosinophils Absolute Auto 0.1 K/mm3 (0-0.3); Eosinophils Percent Auto 1.9 % (0-4.4); Hematocrit 57.2 % (42.0-52.0); Immature Granulocyte Absolute 0.04 K/mm3 (0.00-0.031); Immature Granulocyte Percent A 0.6 % (0-0.5); Immature Platelet Fraction Pct 15.5 % (0.9-11.2); Lymphocytes Absolute Auto 1.06 K/mm3 (0.9-3.2); Lymphocytes Percent Auto 15.6 % (18.3-44.2); Mean Corpuscular HGB Conc 29.7 g/dl (32-36); Mean Corpuscular Volume 87.5 fl (80-100); Monocytes Absolute Auto 0.2 K/mm3 (0.1-0.6); Monocytes Percent Auto 2.6 % (2.6-8.5); Neutrophils Absolute Auto 5.3 K/mm3 (1.3-6.7); Neutrophils Percent Auto 78.1 % (45.5-73.1); Platelet Count Result 150 k/mm3 (150-375); Red Blood Count 6.54 M/mm3 (4.6-6.20); White Blood Count 6.8 K/mm3 (4.5-10.0)
[2024-06-13 19:37] LABS: Iron 64 ug/dL (49-181)
[2024-06-13 19:43] LABS: Hypochromasia 1+; Ovalocytes 1+; Platelet Estimate Adequate (Adequate); Schistocytes None Seen
[2024-06-13 19:51] LABS: Percent Iron Saturation 17 % (20-50)
[2024-06-13 19:59] LABS: Alanine Aminotransferase 42 U/L (6-50); Albumin Level 4.3 g/dL (3.5-5.1); Alkaline Phosphatase 128 U/L (38-126); Anion Gap 5 mmol/L (4-12); Aspartate Amino Transferase 158 U/L (17-59); Bilirubin,Total 1.2 mg/dL (0.2-1.3); Blood Urea Nitrogen 12 mg/dL (9-20); Calcium 9.6 mg/dL (8.4-10.2); Carbon Dioxide 32 mmol/L (22-30); Chloride 102 mmol/L (98-107); Cholesterol 75 mg/dL (0-200); Estimated Glomerular Filt Rate > 60; Glucose 95 mg/dL (65-110); HDL Direct 19 mg/dL; Magnesium 2.2 mg/dL (1.6-2.3); Potassium 4.5 mmol/L (3.4-5.0); Sodium 139 mmol/L (137-145); Triglycerides 125 mg/dL (<150)
[2024-06-13 20:47] LABS: LDL Cholesterol Direct < 30 mg/dL
[2024-06-13 20:51] LABS: Vitamin B12 > 1000.0 pg/mL (239-931)
== END 2024-06-13 06:30 | disposition home or self-care (01) ==
PROVIDERS: PCP Nurse Practitioner Adult Health; Visit Provider Nurse Practitioner Adult Health
DX: D64.9 Anemia, unspecified (principal); I10 Essential (primary) hypertension
CPT/HCPCS: 36415; 80053; 80061; 82607; 82728; 83540; 83550; 83735; 85025; 85055

== ENCOUNTER 2024-06-15 06:30 | Outpatient (CLI) | payer OTHER, SELFPAY ==
--- OUTSIDE RECORDS SUMMARY | 2024-06-15 06:33 | XMS_ITS | Clinical Summary ---
Author Organization [facility] Address [address] [place] [address] Care Team Providers Care Construction Trench Digger Name Role Phone Unavailable Primary Care Provider Unavailabl e Source Comments [facility],non-owned Affiliates and Associated Physician Practices is amultiple site organization consisting of ambulatory clinics and hospital sitesin [place], [place], [place] and [place]. This disclosure is being madepursuant to the Care Everywhere program and may not contain all information available regarding this patient. Last updated 17.[facility] Allergies No known active allergies Medications * [...] Diagnosed Date Coronary artery disease invo lving [place] coronary artery of [place] heart 03/05/2018 Assessment & Plan (03/05/2018 2:35 AM PRECISION AIRCRAFT SYSTEMS ASSEMBLER): Known problem. Pt not taking meds. Resolved Problems Problem Noted Date Diagnosed Date Resolved Date ST elevation myocardial infa rction involving left anterior descending (LAD) coronary artery 03/06/2018 03/06/2018 Acute coronary syndrome 03/05/2018 12/0 05/2017 Assessment & Plan (03/05/2018 2:35 AM PRECISION AIRCRAFT SYSTEMS ASSEMBLER): Will take to laboratory helper right away ACS (acute coronary syndrome) 03/05/2018 [...] Comments Blood Pressure 112/86 03/06/2018 12:00 PM PRECISION AIRCRAFT SYSTEMS ASSEMBLER Pulse 74 03/06/2018 12:31 PM PRECISION AIRCRAFT SYSTEMS ASSEMBLER Temperature 36.1 C (96.9 F) 03/06/2018 11:26 AM PRECISION AIRCRAFT SYSTEMS ASSEMBLER Respiratory Rate 16 03/06/2018 12:3 1 PM PRECISION AIRCRAFT SYSTEMS ASSEMBLER Oxygen Saturation 98% 03/06/2018 11: 26 AM PRECISION AIRCRAFT SYSTEMS ASSEMBLER Inhaled Oxygen Concentration - - Weight 94.2 kg (207 lb 11.2 oz) 03/06/2018 3:00 AM PRECISION AIRCRAFT SYSTEMS ASSEMBLER Height 167.6 cm (5' 6 ) 03/05/2018 2:31 AM PRECISION AIRCRAFT SYSTEMS ASSEMBLER Body Mass Index 33.52 03/05/2018 2:31 AM PRECISION AIRCRAFT SYSTEMS ASSEMBLER Plan of Treatment Health Maintenance Due Date [...] to complete this topic MENINGOCOCCAL (Group B) VACC INE SHARED DECISION-MAKING Aged Out No longer eligibl e based on patient's age to complete this topic MENINGOCOCCAL GROUPS A/C/Y/W VACCINE Aged Out No longer eligible b ased on patient's age to complete this topic Advance Directives * Full Code (Latest Code Status on File) Date Activated Date Inactivated Comments 03/05/2018 3:26 AM 03/06/2018 3:08 PM
--- OUTSIDE RECORDS SUMMARY | 2024-06-15 06:33 | XMS_ITS | Referral Summary ---
Author Organization [facility] Address [address] [place] [address] Care Team Providers Care Supervisor Receiving And Processing Name Role Phone Unavailable Primary Care Provider Unavailabl e Source Comments [facility],non-owned Affiliates and Associated Physician Practices is amultiple site organization consisting of ambulatory clinics and hospital sitesin [place], [place], [place] and [place]. This disclosure is being madepursuant to the Care Everywhere program and may not contain all information available regarding this patient. Last updated 17.[facility] Allergies No known active allergies Medications * [...] Diagnosed Date Coronary artery disease invo lving [place] coronary artery of [place] heart 03/05/2018 Assessment & Plan (03/05/2018 2:35 AM ELECTRICAL AND RADIO MOCK UP MECHANIC): Known problem. Pt not taking meds. Resolved Problems Problem Noted Date Diagnosed Date Resolved Date ST elevation myocardial infa rction involving left anterior descending (LAD) coronary artery 03/06/2018 03/06/2018 Acute coronary syndrome 03/05/2018 120 05/2017 Assessment & Plan (03/05/2018 2:35 AM ELECTRICAL AND RADIO MOCK UP MECHANIC): Will take to phlebotomist medical lab assistant right away ACS (acute coronary syndrome) 03/05/2018 [...] Comments Blood Pressure 112/86 03/06/2018 12:00 PM ELECTRICAL AND RADIO MOCK UP MECHANIC Pulse 74 03/06/2018 12:31 PM ELECTRICAL AND RADIO MOCK UP MECHANIC Temperature 36.1 C (96.9 F) 03/06/2018 11:26 AM ELECTRICAL AND RADIO MOCK UP MECHANIC Respiratory Rate 16 03/06/2018 12:3 1 PM ELECTRICAL AND RADIO MOCK UP MECHANIC Oxygen Saturation 98% 03/06/2018 11: 26 AM ELECTRICAL AND RADIO MOCK UP MECHANIC Inhaled Oxygen Concentration - - Weight 94.2 kg (207 lb 11.2 oz) 03/06/2018 3:00 AM ELECTRICAL AND RADIO MOCK UP MECHANIC Height 167.6 cm (5' 6 ) 03/05/2018 2:31 AM ELECTRICAL AND RADIO MOCK UP MECHANIC Body Mass Index 33.52 03/05/2018 2:31 AM ELECTRICAL AND RADIO MOCK UP MECHANIC Functional Status Functional Status Response Date of [...]
--- OUTSIDE RECORDS SUMMARY | 2024-06-15 06:33 | XMS_ITS | Clinical Summary ---
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
--- OUTSIDE RECORDS SUMMARY | 2024-06-15 06:33 | XMS_ITS | Clinical Summary ---
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 Gender Identity Not on file Sexual Orientation [...] Male Attending MD: Maico Wright MD Room: [facility] 1 Note Status: Finalized Patient [...] passed under direct vision.The Pediatric Colonoscope PCF-H190L [id number] was introduced through the anus and advanced [...] 11:35 AM Procedure Code(s): --- Professional --- 05166, Colonoscopy, flexible; diagnostic, including collection of specimen(s) by brushing or washing, when performed (separateprocedure) Diagnosis Code(s): --- Professional --- Z12.11, Encounter for screening for malignant neoplasm of colon K64.8, Other hemorrhoids CPT copyright 2017 [employer]. All rights reserved. The codes documented in this report are preliminary and upon shale processing technician reviewmay be revised to meet current compliance requirements. Recognized by the [employer] for promoting quality in endoscopy Maico Wright MD ENDOSCOPY PROCEDURES Final Result from Last 3 Months or Most Recently Relevant to Health Maintenance Insurance [place] [address] ACCESS BLUE ACCESS [place] Member Subscriber Plan / Payer (Ef fective 2018-Present) Name:Mynor Joyner Relation to Subscriber:Self Name:MYNOR JOYNER Payer ID:[id number] (NAIC) Type: [employer] Address: [address] [place] [address] BLUE ACCESS [place] [employer]IG[employer] OPEN ACCESS Advance Directives For more information, please contact: [phone] * Full Code (Latest Code Status on File) Date Activated Date Inactivated Comments 06/09/2018 1:25 PM 06/10/2018 7:38 PM * Full Code Date Activated Date Inactivated Comments 01/17/2018 11:00 AM 01/17/2018 3:02 PM Healthcare Agents on File Name Relationship Healthcare Agent Relationshi p Communication Brook Joyner Spouse First Alternate Health Care Agent Care Teams Artificial Pearl Maker Relationship Specialty Start Date End Date Maciel Hairston MD [address] [place] [address] PCP - General 11/18/17 Surya Snow MD [address] [place] [address] Consulting Physician Cardiology 06/10/18
--- OUTSIDE RECORDS SUMMARY | 2024-06-15 06:33 | XMS_ITS | Continuity of Care Document ---
Author Organization [facility] Address [address] [place] [address] Phone Care Team Providers Care Journeyman Wireman Name Role Phone Laureano Dillon MD Unavailable [...] Diagnoses Date Provider Providers Copied on Encounter [facility], [address], [place], [place], [address], [place] tel:[phone] [facility] No Information Santana Tinsley. [address], [place], [place], [address], [place]. tel:[phone] Referring Provider: Leobardo Mccann, [address], [place], [address]. tel:[phone] [facility], [address], [place], [place], [address], [place] tel:[phone] [facility] No Information Joel Allen. [address], [place], [place], [address], [place]. tel:[phone] Referring Provider: Leobardo Mccann, [address], [place], [address]. tel:[phone] Family History Family Member Type Diagnosis Age At Onset No Information Payers Payer name Insurance type Covered alliance party ID Authorkaciea pravin(s) [facility] [id number] Social History Type Description Quantity Date Captured [...]
--- OUTSIDE RECORDS SUMMARY | 2024-06-15 06:33 | XMS_ITS | Referral Summary ---
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 Gender Identity Not on file Sexual Orientation [...] Wright MD - 01/17/2018 11:35 AM CDT [facility] Patient Name: Mynor Joyner Procedure Date: 01/17/2018 11:35AM Date of : 1965 Admit Type: Outpatient Age: 52 Gender: Male Attending MD: Maico Wright MD Room: [facility] ENDOSCOPY ROOM 1 Note Status: Finalized Patient [...] passed under direct vision.The Pediatric Colonoscope PCF-H190L [id number] was introduced through the anus and advanced [...] 11:35 AM Procedure Code(s): --- Professional --- 83630, Colonoscopy, flexible; diagnostic, including collection of specimen(s) by brushing or washing, when performed (separateprocedure) Diagnosis Code(s): --- Professional --- Z12.11, Encounter for screening for malignant neoplasm of colon K64.8, Other hemorrhoids CPT copyright 2017 [employer]. All rights reserved. The codes documented in this report are preliminary and upon tea tree farmer reviewmay be revised to meet current compliance requirements. Recognized by the [employer] for promoting quality in endoscopy Maico Wright MD ENDOSCOPY PROCEDURES Final Result from Last 3 Months or Most Recently Relevant to Health Maintenance Insurance [employer] [place] [employer] OOS [employer] OPEN ACCESS Advance Directives For more information, please contact: [phone] * Full Code (Latest Code Status on File) Date Activated Date Inactivated Comments 06/09/2018 1:25 PM 06/10/2018 7:38 PM * Full Code Date Activated Date Inactivated Comments 01/17/2018 11:00 AM 01/17/2018 3:02 PM Healthcare Agents on File Name Relationship Healthcare Agent Relationshi p Communication Brook Joyner Spouse First Alternate Health Care Agent Care Teams Team Primary Care Physician Relationship Specialty Start Date End Date Maciel Hairston MD [address] [place] [address] PCP - General 11/18/17 Surya Snow MD [address] [place] [address] Consulting Physician Cardiology 06/10/18
--- OUTSIDE RECORDS SUMMARY | 2024-06-15 06:33 | XMS_ITS | Patient Health Summary ---
Author Organization [facility] Address [address] [address] Care Team Providers Care Customer Service Driver Name Role Phone Unavailable Primary Care Provider Unavailabl e Note from [facility],non-owned Affiliates and Associated Physician Practices is amultiple site organization consisting of ambulatory clinics and hospital sitesin [place], [place], [place] and [place]. This disclosure is being madepursuant to the Care Everywhere program and may not contain all information available regarding this patient. Last updated 17.[facility] [place] Allergies No known active allergies Medications * [...] Diagnosed Date Coronary artery disease invo lving ione coronary artery of ione heart 03/05/2018 Resolved Problems Problem Noted Date [...] Comments Blood Pressure 112/86 03/06/2018 12:00 PM MUSIC COMPOSITION TEACHER Pulse 74 03/06/2018 12:31 PM MUSIC COMPOSITION TEACHER Temperature 36.1 C (96.9 F) 03/06/2018 11:26 AM MUSIC COMPOSITION TEACHER Respiratory Rate 16 03/06/2018 12:3 1 PM MUSIC COMPOSITION TEACHER Oxygen Saturation 98% 03/06/2018 11: 26 AM MUSIC COMPOSITION TEACHER Inhaled Oxygen Concentration - - Weight 94.2 kg (207 lb 11.2 oz) 03/06/2018 3:00 AM MUSIC COMPOSITION TEACHER Height 167.6 cm (5' 6 ) 03/05/2018 2:31 AM MUSIC COMPOSITION TEACHER Body Mass Index 33.52 03/05/2018 2:31 AM MUSIC COMPOSITION TEACHER Procedures * LAB RESULTS ORDER(Performed 12/02/2022) * [...] * ED CRITICAL CARE (03/18/2018 4:08 PM MUSIC COMPOSITION TEACHER) Narrative Ebony Joseph MD - 03/18/2018 4:08 PM MUSIC COMPOSITION TEACHER Ebony Joseph MD 03/18/2018 4:08 PM Critical [...] CARDIAC RHYTHM STRIP ORDER (03/07/2018 12:47 PM MUSIC COMPOSITION TEACHER) Narrative 03/07/2018 12:47 PM MUSIC COMPOSITION TEACHER Ordered by an unspecified provider. Scanned Document CARDIAC SERVICES ORD ERABLES * EKG 12-LEAD (03/06/2018 6:43 AM MUSIC COMPOSITION TEACHER) Only the most recent of4 resultswithin the time period is included. Ventricular Rate 71 BPM [facility] Atrial Rate 71 BPM [facility] P-R Interval 156 ms [facility] QRS Duration ms 92 ms [facility] Q-T Interval ms 434 ms [facility] QTC Calculation (Bezet) 471 ms [facility] Calculated P [place] 76 degrees [facility] Calculated R [place] 84 degrees [facility] Calculated T [place] 74 degrees [facility] Interpretation EKG Normal sinus rhythm Anterior infarct (cited on or before 05-MAR-2018 ) Inferior injury pattern Resolving Anterior GA with memorty T waves Abnormal ECG When compared with ECG of 05-MAR-2018 06:47, Serial changes of evolving Anterior infarct Present Confirmed by Juan REYES LARRY ([id number]) on 03/06/2018 8:23:31 AM [facility] 03/06/2018 6:43 AM MUSIC COMPOSITION TEACHER 03/06/2018 8:23 AM MUSIC COMPOSITION TEACHER Juan Jose Reyes DO ECG ORDERABLES [facility] * (ABNORMAL) TROPONIN I (03/06/2018 5:02 AM MUSIC COMPOSITION TEACHER) Only the most recent of4 resultswithin the time period is included. Troponin I 19.324(HH) 0.000 - 0.299 ng/mL 03/06/2018 7:21 AM MUSIC COMPOSITION TEACHER [facility] Blood BLOOD SPECIMEN / Unknown Lab Venipuncture / Unknown 03/06/2018 5:02 AM MUSIC COMPOSITION TEACHER 03/06/2018 6:43 AM MUSIC COMPOSITION TEACHER Narrative [facility] - 03/06/2018 7:21 AM MUSIC COMPOSITION TEACHER < 0.03 ng/mL Negative; repeat testing in [...] Reyes DO LAB - CHEMISTRY ZACH JEFFERSON [facility] [address], [place] [address] [phone] * (ABNORMAL) CBC W AUTO DIFFERENTIAL (03/06/2018 5:02 AM MUSIC COMPOSITION TEACHER) Only the most recent of3 resultswithin the time period is included. WBC 10.2 4.0 - 10.5 x10E9/L 03/06/2018 6:58 AM [facility] RBC 5.27 4.70 - 6.00 x10E12/L 03/06/2018 6:58 AM [facility] Hemoglobin 16.0 13.5 - 18.0 gm/dL 03/06/2018 6:58 AM [facility] Hematocrit 47.4 42.0 - 52.0 % 03/06/2018 6:58 AM [facility] MCV 89.9 78.0 - 100.0 fl 03/06/2018 6:58 AM [facility] MCH 30.4 27.0 - 31.0 pg 03/06/2018 6:58 AM [facility] MCHC 33.8 32.0 - 36.0 gm/dL 03/06/2018 6:58 AM [facility] RDW 14.0 11.5 - 14.0 % 03/06/2018 6:58 AM [facility] Platelet Count 213 150 - 450 x10E9/L 03/06/2018 6:58 AM [facility] MPV 11.3(H) 6.0 - 9.5 fl 03/06/2018 6:58 AM [facility] Neutrophil Absolute 6.68(H) 1.5 - 6.6 x10E9/L 03/06/2018 6:58 AM [facility] Lymphocytes Absolute 2.29 1.5 - 3.5 x10E9/L 03/06/2018 6:58 AM [facility] Monocytes Absolute 0.80 0 - 1 x10E9/L 03/06/2018 6:58 AM [facility] Eosinophils Absolute 0.29 0 - 0.7 x10E9/L 03/06/2018 6:58 AM [facility] Basophils Absolute 0.05 0 - 0.1 x10E9/L 03/06/2018 6:58 AM [facility] Immature Granulocytes Absolute 0.05 0.00 - 0.06 x10E9/L 03/06/2018 6:58 AM [facility] nRBC Absolute 0.00 x10E9/L 03/06/2018 6:58 AM [facility] Neutrophils % 65.7 % 03/06/2018 6:58 AM [facility] Lymphocytes % 22.5 % 03/06/2018 6:58 AM [facility] Monocytes % 7.9 % 03/06/2018 6:58 AM [facility] Eosinophils % 2.9 % 03/06/2018 6:58 AM [facility] Basophils % 0.5 % 03/06/2018 6:58 AM [facility] Immature Granulocytes 0.5 % 03/06/2018 6:58 AM [facility] nRBC Auto 0.0 % 03/06/2018 6:58 AM [facility] Blood BLOOD SPECIMEN / Unknown Lab Venipuncture / Unknown 03/06/2018 5:02 AM MUSIC COMPOSITION TEACHER 03/06/2018 6:42 AM [facility] Juan Jose Reyes DO LAB - HEMATOLOGY ORD ERABLES [facility] [address], [place] [address] [phone] * (ABNORMAL) BASIC METABOLIC PANEL (CALCIUM TOTAL) (03/06/2018 5:02 AM [facility]) Only the most recent of2 resultswithin the time period is included. Sodium 140 136 - 145 mmol/L 03/06/2018 7:25 AM [facility] Potassium 3.9 3.5 - 5.1 mmol/L 03/06/2018 7:25 AM [facility] Chloride 109(H) 98 - 107 mmol/L 03/06/2018 7:25 AM [facility] CO2 22 22 - 29 mmol/L 03/06/2018 7:25 AM [facility] Anion Gap 9 9 - 16 mmol/L 03/06/2018 7:25 AM [facility] Glucose 99 70 - 105 mg/dL 03/06/2018 7:25 AM [facility] BUN 11 8.4 - 25.7 mg/dL 03/06/2018 7:25 AM [facility] Creatinine 0.80 0.72 - 1.25 mg/dL 03/06/2018 7:25 AM [facility] BUN/Creatinine Ratio 13.8 11.7 - 20.6 03/06/2018 7:25 AM [facility] Calcium 9.3 8.4 - 10.2 mg/dL 03/06/2018 7:25 AM [facility] Osmolality Calculated 270 260 - 286 mOsm/kg 03/06/2018 7:25 AM MUSIC COMPOSITION TEACHER [facility] eGFR by MDRD >60 >60 mL/min/1.7 3m2 03/06/2018 7:25 AM MUSIC COMPOSITION TEACHER [facility] eGFR by MDRD >60 >60 mL/min/1.7 3m2 03/06/2018 7:25 AM [facility] Blood BLOOD SPECIMEN / Unknown Lab Venipuncture / Unknown 03/06/2018 5:02 AM MUSIC COMPOSITION TEACHER 03/06/2018 6:43 AM MUSIC COMPOSITION TEACHER Narrative [facility] - 03/06/2018 7:25 AM MUSIC COMPOSITION TEACHER ADA Comment: The [employer] Diabetes Association recommends a fasting glucose concentration [...] Reyes DO LAB - CHEMISTRY ZACH JEFFERSON [facility] [address] [phone] * ACT - POCT (IP) VERONIKA [facility] (03/05/2018 5:22 AM MUSIC COMPOSITION TEACHER) ACT POCT 132 170 Seconds [facility] ACT Non-Heparinize d POCT 70 - 170 Seconds [facility] QC Verified Yes [facility] Blood BLOOD SPECIMEN / Unknown 03/05/2018 5:22 AM MUSIC COMPOSITION TEACHER Juan Jose Reyes DO LAB - POINT OF CARE ORDERABLES [facility] POCT TESTING [address], [place] [address] [phone] * XR CHEST 1VW PORTABLE (03/05/2018 2:24 AM MUSIC COMPOSITION TEACHER) Anatomical Region Laterality Modality Chest Radiographic Cailin ging 03/05/2018 2:34 AM MUSIC COMPOSITION TEACHER Impressions 03/05/2018 2:34 AM MUSIC COMPOSITION TEACHER 1. Slight linear opacity left base probably subsegmental atelectasis. Active infiltrate less likely. Follow-up recommended as clinically indicated. Narrative 03/05/2018 2:34 AM MUSIC COMPOSITION TEACHER Study Date Time: 03/05/2018 02:09 Chest one [...] ORDERABLES * (ABNORMAL) D-DIMER (03/05/2018 1:58 AM MUSIC COMPOSITION TEACHER) D-Dimer 0.60(H) <0.51 mg/L FEU 03/05/2018 3:55 AM MUSIC COMPOSITION TEACHER [facility] Blood BLOOD SPECIMEN / Unknown Venipuncture / Unknown 03/05/2018 1:58 AM MUSIC COMPOSITION TEACHER 03/05/2018 2:14 AM MUSIC COMPOSITION TEACHER Narrative [facility] - 03/05/2018 3:55 AM MUSIC COMPOSITION TEACHER The negative cut-off value has been determined to be 0.50 mg/L FEU. The negative cut-off value is a discriminate value used to distinguish between the presence or absence of a venous thromboembolism. Elevated D-Dimer levels, although suggestive of venous thromboembolism, are not diagnostic. Clinical correlation is required. Ebony Joseph MD LAB - COAGULATION O RDERABLES Performing Organization Address City/[facility]/ZIP Co de Phone Number [facility] [address] [phone] * (ABNORMAL) DIFFERENTIAL MANUAL (03/05/2018 1:58 AM [facility]) WBC Auto 13.4 x10E9/L 03/05/2018 3:07 AM [facility] Neutrophil % Manual 55 % 03/05/2018 3:07 AM [facility] Lymphocytes % Manual 30 % 03/05/2018 3:07 AM [facility] Monocytes % Manual 7 % 03/05/2018 3:07 AM [facility] Eosinophils % Manual 7 % 03/05/2018 3:07 AM [facility] Band % Manual 1 % 03/05/2018 3:07 AM [facility] Cells Counted 100 # cells 03/05/2018 3:07 AM [facility] Platelet Estimation Adequate platelets Normal, Adequate platelets 03/05/2018 3:07 AM [facility] RBC Morphology Normal 03/05/2018 3:07 AM [facility] WBC Morph Normal 03/05/2018 3:07 AM [facility] Large Platelets Few(A) None 03/05/2018 3:07 AM [facility] Blood BLOOD SPECIMEN / Unknown Venipuncture / Unknown 03/05/2018 1:58 AM MUSIC COMPOSITION TEACHER 03/05/2018 2:14 AM MUSIC COMPOSITION TEACHER Ebony Joseph MD LAB - HEMATOLOGY OR DERABLES [facility] [address] [place], [place] [id number] [place] [address] * (ABNORMAL) COMPREHENSIVE METABOLIC PANEL (03/05/2018 1:58 AM [facility]) Sodium 141 136 - 145 mmol/L 03/05/2018 3:14 AM [facility] Potassium 3.7 3.5 - 5.1 mmol/L 03/05/2018 3:14 AM [facility] Chloride 106 98 - 107 mmol/L 03/05/2018 3:14 AM [facility] CO2 22 22 - 29 mmol/L 03/05/2018 3:14 AM [facility] Anion Gap 13 9 - 16 mmol/L 03/05/2018 3:14 AM [facility] Glucose 114(H) 70 - 105 mg/dL 03/05/2018 3:14 AM [facility] BUN 13 8.4 - 25.7 mg/dL 03/05/2018 3:14 AM [facility] Creatinine 0.84 0.72 - 1.25 mg/dL 03/05/2018 3:14 AM [facility] BUN/Creatinine Ratio 15.5 11.7 - 20.6 03/05/2018 3:14 AM [facility] Calcium 9.7 8.4 - 10.2 mg/dL 03/05/2018 3:14 AM [facility] Protein Total 7.2 6.4 - 8.3 gm/dL 03/05/2018 3:14 AM [facility] Albumin 4.6 3.5 - 5.0 gm/dL 03/05/2018 3:14 AM [facility] ALT 40 0 - 55 U/L 03/05/2018 3:14 AM [facility] AST 28 5 - 34 U/L 03/05/2018 3:14 AM [facility] Alkaline Phosphatase 100 40 - 150 U/L 03/05/2018 3:14 AM [facility] Bilirubin Total 0.5 0.2 - 1.2 mg/dL 03/05/2018 3:14 AM [facility] Calcium Adjusted 9.22 8.4 - 10.2 mg/dL 03/05/2018 3:14 AM [facility] Globulin Total 2.6 1.3 - 4.7 gm/dL 03/05/2018 3:14 AM [facility] Albumin/Globulin Ratio 1.8 1.1 - 2.2 03/05/2018 3:14 AM [facility] Osmolality Calculated 273 260 - 286 mOsm/kg 03/05/2018 3:14 AM MUSIC COMPOSITION TEACHER [facility] eGFR by MDRD >60 >60 mL/min/1.7 3m2 03/05/2018 3:14 AM [facility] eGFR by MDRD >60 >60 mL/min/1.7 3m2 03/05/2018 3:14 AM [facility] Blood BLOOD SPECIMEN / Unknown Venipuncture / Unknown 03/05/2018 1:58 AM MUSIC COMPOSITION TEACHER 03/05/2018 2:14 AM MUSIC COMPOSITION TEACHER Narrative [facility] - 03/05/2018 3:14 AM MUSIC COMPOSITION TEACHER ADA Comment: The English Diabetes Association recommends a fasting glucose concentration [...] Joseph MD LAB - CHEMISTRY ORD ERABLES [facility] [address] [phone] * LIPASE BLOOD (03/05/2018 1:58 AM MUSIC COMPOSITION TEACHER) Lipase 19 8 - 78 U/L 03/05/2018 3:07 AM [facility] Blood BLOOD SPECIMEN / Unknown Venipuncture / Unknown 03/05/2018 1:58 AM MUSIC COMPOSITION TEACHER 03/05/2018 2:14 AM MUSIC COMPOSITION TEACHER Ebony Joseph MD LAB - CHEMISTRY ORD ERABLES [facility] [address] [phone] * CARDIAC CATH CONSULT (for Epic Reporting) (03/05/2018 12:00 AM MUSIC COMPOSITION TEACHER) 03/05/2018 [facility] CARDIOLOGY - 03/05/2018 3:39 AM MUSIC COMPOSITION TEACHER , Cardiovascular Catheterization Comprehensive Report Patient: MISHA JOYNER MR number: [id number] Study date: 03/05/2018 : 1965 Age: 52 years Gender: Male Height: 66.1 in Weight: 204.6 lb BSA: 2.02 m Cine ID: [id number] Test time: 02:51 - 03:26 Fluoro time: 6.7 min Diagnostic Hat Designer: JUAN JOSE REYES D.O. Seafood Manager: ELIZABETH CHAN RN Scrub: RT BRIAN(R)(M)(RVT)([facility]) Monitor: RT SARITA(R) Fruit Thinner Machine Operator: JUAN JOSE REYES D.O. PROCEDURES PERFORMED: -- [...] obtained. The patient was brought to the pit laborer and placed on the table. The [...] no adverse outcomes. NONE occurred during the pit laborer visit. PROCEDURE COMPLETION: The patient tolerated [...] Comprehensive Report Patient: MISHA JOYNER MR number: [id number] Study date: 03/05/2018 : 1965 Age: 52 years Gender: Male Height: 66.1 in Weight: 204.6 lb BSA: 2.02 m Cine ID: [id number] Test time: 02:51 - 03:26 Fluoro time: 6.7 min Diagnostic Hat Designer: JUAN JOSE REYES D.O. Seafood Manager: ELIZABETH CHAN RN Scrub: RT BRINA(R)(M)([facility])([facility]) Monitor: RT SARITA(R) Fruit Thinner Machine Operator: JUAN JOSE REYES D.O. PROCEDURES PERFORMED: -- [...] obtained. The patient was brought to the pit laborer and placed on the table. The [...] no adverse outcomes. NONE occurred during the pit laborer visit. PROCEDURE COMPLETION: The patient tolerated [...] k.00 Juan Jose Reyes DO ECHO ORDERABLES [facility] * CARDIAC PROCEDURE ORDER (03/05/2018) Scanned Document CARDIAC SERVICES ORD ERABLES * ECHOCARDIOGRAM 2D WITH DOPPLER (03/05/2018 12:00 AM MUSIC COMPOSITION TEACHER) 03/05/2018 Narrative [facility] - 03/06/2018 12:18 PM MUSIC COMPOSITION TEACHER , MISHA JOYNER [id number] Transthoracic Echocardiogram 06-Mar-2018 : 1965 Gender: Male Location: Bedside Height: 66 in Weight: 208.6 lb BSA: 2.04 m Study date: 06-Mar-2018 Study time: 11 45 Reading Physician: JUAN JOSE REYES D.O. Technologist: RT BRIAN(Brenda)(Evi)(T)([facility]) Ordering Physician: JUAN JOSE REYES [...] Jose Reyes DO - 03/06/2018 , MONAWANDAMISHA [id number] Transthoracic Echocardiogram 06-Mar-2018 : 1965 Gender: Male Location: Bedside Height: 66 in Weight: 208.6 lb BSA: 2.04 m Study date: 06-Mar-2018 Study time: 11 45 Reading Physician: JUAN JOSE REYES D.O. Technologist: RT BRIAN(R)(M)(T)([facility]) Ordering Physician: JUAN JOSE REYES [...] 12:17:59 Juan Jose Reyes DO ECHO ORDERABLES [facility]
[2024-06-15 20:38] LABS: Hepatitis C Virus Antibody Negative (Negative)
== END 2024-06-15 06:31 | disposition home or self-care (01) ==
LOC: ANHBWCLAB 06:31
PROVIDERS: PCP Nurse Practitioner Adult Health; Visit Provider Nurse Practitioner Adult Health
DX: R74.8 Abnormal levels of other serum enzymes (principal)
CPT/HCPCS: 36415; 86803

== ENCOUNTER 2024-12-19 06:26 | Outpatient (CLI) | payer OTHER, SELFPAY ==
--- OUTSIDE RECORDS SUMMARY | 2020-03-06 05:30 | XMS_ITS | Continuity of Care Document ---
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 Name Role Phone Laureano Dillon MD Unavailable Unavailable Procedures Procedure Date INJECT, ANESTHETIC AND/OR ST EROID, TRANSFORAMINAL EPIDURAL; C/T, SINGLE LEVEL SURGICAL TRAY LOW OSMOLAR CONTRAST (200 TO 299 MG IODI NE) INJ, DEXAMETHASONE SODUIM PHOSPHATE (DEC ADRON) 1MG Additional supplies, materials, & Clinic al Staff Time During A PHE INJECT, ANESTHETIC AND/OR ST EROID, TRANSFORAMINAL EPIDURAL; C/T, SINGLE LEVEL SURGICAL TRAY Additional supplies, materials, & Clinic al Staff Time During A PHE LOW OSMOLAR CONTRAST (200 TO 299 MG IODI NE) INJ, DEXAMETHASONE SODUIM PHOSPHATE (DEC ADRON) 1MG MRI, UPPER EXTREMITY W/O CONTRAST Advance Directives Directive Yes / No Effective Date File Name No Information Encounters Encounter Description Practice Location Reason(s) For Visit Diagnoses Date Provider Providers Copied on Encounter [employer] [facility], [address], [place], [place], [id number], [place] tel:[phone] [facility] No Information Santana Tinsley. [address], [place], [place], [id number], [place]. tel:[phone] Referring Provider: Leobardo Mccann, [address], [place], [address]. tel:[phone] [facility], [address], [place], [place], [id number], [place] tel:[phone] [facility] No Information Joel Allen. [address], [place], [place], [address], [place]. tel:[phone] Referring Provider: Leobardo Mccann, [address], [place], [address]. tel:[phone] Family History Family Member Type Diagnosis Age At Onset No Information Payers Payer name Insurance type Covered alliance party ID Authorkaciea pravin(s) [facility] [id number] Social History Type Description Quantity Date Captured Comments Sex Male Smoking Status No Information Chief Complaint And Reason For Visit No Information Reason For Referral Reason For Referral No Information History Of Present Illness Encounter Date Complaint History Of Prese nt Illness No Information Functional Status Date Functional Assessmen t No Information Instructions Date Instruction Additional Infor mation No Information Assessments Type Assessment Date No Information Patient Care Teams Name Effective Dates (start - stop) Status Members No Information
--- OUTSIDE RECORDS SUMMARY | 2024-12-19 06:30 | XMS_ITS | Clinical Summary ---
Author Organization [facility] Address [address] [place] [address] Care Team Providers Care Trumpet Teacher Name Role Phone Surya Snow MD Unavailable [phone] Tanya Baer NP Primary Care Provider [phone] Allergies No known active allergies Medications aspirin 81 mg enteric coated tablet Take 1 tablet (81 mg total) by mouth daily 90 tablet 3 5 04/20/19 26 Active atorvastatin (LIPITOR) 80 mg tablet Take 1 tablet (80 mg total) by mouth daily 90 tablet 3 5 06/20/19 26 Active clopidogreL (PLAVIX) 75 mg tablet Take 1 tablet (75 mg total) by mouth daily 90 tablet 3 5 06/20/19 26 Active metoprolol XL (TOPROL-XL) 25 mg extended release tablet Take 1 tablet (25 mg total) by mouth daily 90 tablet 3 5 06/20/19 26 Active lisinopriL (PRINIVIL,ZESTR IL) 20 mg tablet Take 1 tablet (20 mg total) by mouth 2 (two) times a day 180 tablet 3 5 10/19/19 26 Active metoprolol XL (TOPROL-XL) 25 mg extended release tablet Take 1 tablet (25 mg total) by mouth daily 90 tablet 3 4 Discontinued Active Problems Problem Noted Date Diagnosed Date Coronary artery disease invo lving [place] coronary artery of [place] heart 06/15/2023 Assessment & Plan (06/19/2024 3:21 PM CDT): Asymptomatic. Continue aspirin and clopidogrel. Assessment & Plan (12/20/2023 6:25 PM CDT): Asymptomatic, continue ASA/Plavix. Assessment & Plan (06/15/2023 3:47 PM CDT): Asymptomatic. Continue clopidogrel and metoprolol. Peripheral artery disease 06/15/2023 Assessment & Plan (06/15/2023 3:48 PM CDT): No claudication. He has been on Xarelto since his iliac stents in 2019. No change at this time. Mixed hyperlipidemia 06/15/2023 Assessment & Plan (06/19/2024 3:21 PM CDT): Continue atorvastatin. We will obtain laboratory results from [facility]. Assessment & Plan (12/20/2023 6:24 PM CDT): Labs pending, Continue atorvastatin. Assessment & Plan (06/15/2023 3:48 PM CDT): Laboratories checked by his primary care physician. Continue atorvastatin. Primary hypertension 06/15/2023 Assessment & Plan (06/19/2024 3:21 PM CDT): Controlled with metoprolol and lisinopril. No changes recommended. Assessment & Plan (12/20/2023 6:24 PM CDT): Continue metoprolol, and lisinopril Assessment & Plan (06/15/2023 3:48 PM CDT): Continue metoprolol and Xarelto. 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 Gender Identity Not on file Sexual Orientation Not on file Obstetrics History Last Filed Vital Signs Vital Sign Reading Time Taken Comments Blood Pressure 142/88 06/19/2024 2:37 PM CDT Pulse 83 06/19/2024 2:37 PM CDT Temperature 36.8 C (98.2 F) 09/29/2019 9:11 AM CDT Respiratory Rate 16 06/19/2024 2:37 PM CDT Oxygen Saturation 98% 06/19/2024 2:37 PM CDT Inhaled Oxygen Concentration - - Weight 93.9 kg (207 lb) 06/19/2024 2:37 PM CDT Height 180.3 cm (5' 11) 06/15/2023 2:51 PM CDT Body Mass Index 28.87 06/15/2023 2:51 PM CDT Plan of Treatment Health Maintenance Due Date Last Done Comments Depression Screening 1965 Hepatitis C Screening 1965 Prostate Cancer Screening-PSA 1965 DTaP/Tdap/Td Vaccine (1 - Tdap) 08/14/1978 Hepatitis B Screening 08/14/1985 Regular Well Visit/Exam 18-64 08/14/1985 Zoster Vaccine (1 of 2) 08/14/2017 Influenza Vaccine (#1) 2024 Colon Cancer Screening-Colonoscopy 01/18/2028 01/17/2018 Colon Cancer [...] Wright MD - 01/17/2018 11:35 AM CDT [facility] Patient Name: Mynor Joyner Procedure Date: 01/17/2018 11:35AM Date of : 1965 Admit Type: Outpatient Age: 52 Gender: Male Attending MD: Maico Wright MD Room: [facility] ENDOSCOPY ROOM 1 Note Status: Finalized [...] passed under direct vision.The Pediatric Colonoscope [id number] [id number] was introduced through the anus and advanced [...] 11:35 AM Procedure Code(s): --- Professional --- 25976, Colonoscopy, flexible; diagnostic, including collection of specimen(s) by brushing or washing, when performed (separateprocedure) Diagnosis Code(s): --- Professional --- Z12.11, Encounter for screening for malignant neoplasm of colon K64.8, Other hemorrhoids CPT copyright 2017 [employer]. All rights reserved. The codes documented in this report are preliminary and upon acid conditioner reviewmay be revised to meet current compliance requirements. Recognized by the [employer] for promoting quality in endoscopy Maico Wright MD ENDOSCOPY PROCEDURES Final Result from Last 3 Months or Most Recently Relevant to Health Maintenance Insurance [employer] [place] [employer] [place] OPEN ACCESS Advance Directives For more information, please contact: [phone] * Full Code (Latest Code Status on File) Date Activated Date Inactivated Comments 06/09/2018 1:25 PM 06/10/2018 7:38 PM * Full Code Date Activated Date Inactivated Comments 01/17/2018 11:00 AM 01/17/2018 3:02 PM Healthcare Agents on File Name Relationship Healthcare Agent Relationshi p Communication Brook Joyner Spouse First Alternate Health Care Agent Care Teams Trumpet Teacher Relationship Specialty Start Date End Date Tanya Baer NP [address] [place] [address] PCP - General Nurse Practitioner 06/19/24 Surya Snow MD Consulting Physician Cardiology 06/10/18
--- OUTSIDE RECORDS SUMMARY | 2024-12-19 06:30 | XMS_ITS | Clinical Summary ---
Author Organization [facility] Address [address] [place] [address] Care Team Providers Care Bundle Sorter Name Role Phone Unavailable Primary Care Provider Unavailabl e Source Comments [facility],non-owned Affiliates and Associated Physician Practices is amultiple site organization consisting of ambulatory clinics and hospital sitesin [place], [place], [place] and [place]. This disclosure is being madepursuant to the Care Everywhere program and may not contain all information available regarding this patient. Last updated 17.[facility] Allergies No known active allergies Medications * Be aware that medications may not be up to date on this document. Alwaysverify current medications with the patient. aspirin (ASPIRIN) 81 MG chew tablet Take 1 tablet by mouth once daily 100 tablet 5 03/07/2018 Active atorvastatin (LIPITOR) 80 MG tablet Take 1 tablet by mouth at bedtime 30 tablet 5 03/06/2018 Active lisinopril (PRINIVIL;ZESTR IL) 5 MG tablet Take 1 tablet by [...] Date Coronary artery disease invo lving [place] coronary artery of [place] heart 03/05/2018 Assessment & Plan (03/05/2018 2:35 AM FOUNTAIN P[employer] NIBS INSPECTOR): Known problem. Pt not taking meds. Resolved Problems Problem Noted Date Diagnosed Date Resolved Date ST elevation myocardial infa rction involving left anterior descending (LAD) coronary artery 03/06/2018 03/06/2018 Acute coronary syndrome 03/05/2018 12/0 05/2017 Assessment & Plan (03/05/2018 2:35 AM FOUNTAIN [employer] NIBS INSPECTOR): Will take to engineering lab technician right away ACS (acute coronary syndrome) 03/05/2018 03/06/2018 Social History Tobacco Use Types Packs/Day Years Used Date Smoking Tobacco: Every Day Cigarettes Smokeless Tobacco: Never Tobacco Cessation:Ready to Q uit: No; Counseling Given: No Sex and Gender Information Value Date Recorded Sex Assigned at Not on file Legal Sex Male 6:05 AM FOUNTAIN P[employer]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 INSPECTOR Gender Identity Not on file Sexual Orientation Not on file Last Filed Vital Signs Vital Sign Reading Time Taken Comments Blood Pressure 112/86 03/06/2018 12:00 PM [employer]OUNTAIN [employer]BS INSPECTOR Pulse 74 03/06/2018 12:31 PM [employer]OUNTAIN P[employer] NIBS INSPECTOR Temperature 36.1 C (96.9 F) 03/06/2018 11:26 AM FOUNTAIN P[employer] NIBS INSPECTOR Respiratory Rate 16 03/06/2018 12:3 1 PM [employer]OUNTAIN [employer]BS INSPECTOR Oxygen Saturation 98% 03/06/2018 11: 26 AM FOUNTAIN P[employer]BS INSPECTOR Inhaled Oxygen Concentration - - Weight 94.2 kg (207 lb 11.2 oz) 03/06/2018 3:00 AM FOUNTAIN P[employer] NIBS INSPECTOR Height 167.6 cm (5' 6) 03/05/2018 2:31 AM FOUNTAIN [employer] NIBS INSPECTOR Body Mass Index 33.52 03/05/2018 2:31 AM FOUNTAIN [employer] NIBS INSPECTOR Plan of Treatment Health Maintenance Due Date [...] 50+ (1 of 2 - PCV) 08/14/1986 ZOSTER VACCINE (1 of 2) 08/14/2017 DEPRESSION SCREENING 04/05/2024 COVID-19 VACCINE ( - 2023-2 5 season) 2024 INFLUENZA VACCINE (#1) 2024 HIB VACCINE Aged Out No longer eligi [...] on patient's age to complete this topic Insurance [facility] SELF PAY NO INSURANCE Member Subscriber Plan / Payer (Ef fective for All Dates) Name:Misha Joyner Member ID:Not on file Relation to Subscriber:Not on file Name:MISHA JOYNER Subscriber ID:Not on file Address: [address] [place] [id number] Payer ID:Not on file Group ID:Not on file Type:Self Pay Address: [place], [place] * Guarantor: MISHA JOYNER Account Type Relation to Patient Date of Phone Billing Address Personal/Family [address] [id number] [employer] SELF PAY NO INSURANCE Member Subscriber Plan / Payer (Ef fective for All Dates) Name:Misha Joyner Member ID:Not on file Relation to Subscriber:Not on file Name:MISHA JOYNRE Subscriber ID:Not on file Address: [address] [place] [address] Payer ID:Not on file Group ID:Not on file Type:Self Pay Address: [place], [place] * Guarantor: MISHA JOYNER Account Type Relation to Patient Date of Phone Billing Address Personal/Family [address] [facility] SELF PAY NO INSURANCE Member Subscriber Plan / Payer (Ef fective for All Dates) Name:Misha Joyner Member ID:Not on file Relation to Subscriber:Not on file Name:MISHA JOYNER Subscriber ID:Not on file Address: [address] [place] [address] Payer ID:Not on file Group ID:Not on file Type:Self Pay Address: [place], [place] * Guarantor: MISHA JOYNER Account Type Relation to Patient Date of Phone Billing Address Personal/Family [address] [facility] SELF PAY NO INSURANCE Member Subscriber Plan / Payer (Ef fective for All Dates) Name:Misha Joyner Member ID:Not on file Relation to Subscriber:Not on file Name:MISHA JOYNER Subscriber ID:Not on file Address: [address] [place] [phone] Payer ID:Not on file Group ID:Not on file Type:Self Pay Address: [place], [place] Advance Directives * Full Code (Latest Code Status on File) Date Activated Date Inactivated Comments 03/05/2018 3:26 AM 03/06/2018 3:08 PM
--- OUTSIDE RECORDS SUMMARY | 2024-12-19 06:30 | XMS_ITS | Clinical Summary ---
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 Gender Identity Not on file Sexual Orientation Not on file Plan of Treatment Health Maintenance Due Date Last Done Comments Hepatitis C Virus (HCV) Screening 1965 TdaP Immunization 1965 Hepatitis B Immunization (1 of 3 - 19+ 3-dose series) 08/14/1986 Cologuard 08/14/2012 Immunochemical Fecal Occult Blood 08/14/2012 Pneumococcal Immunization (5 0+ years) (1 of 1 - PCV) 08/14/2017 Zoster Immunization (1 of 2) 08/14/2017 PSA Discussion 08/14/2022 SARS-COV-2 Immunization (1 - 2023- season) 2023 Influenza Immunization (#1) 2024 Colonoscopy 01/18/2028 01/17/2018 Colorectal Cancer Screening 01/18/2028 Respiratory Syncytial Virus (RSV) Immunization (Adult) (1 - 1-dose 75+ series) 08/14/2042 Human Papillomavirus (HPV) Immunization Aged Out No longer eligible b ased on patient's age to complete this topic Meningococcal Immunization (ACWY) Aged Out No longer eligible based on patient's age to complete this topic Rotavirus Immunization Aged Out No lo nger eligible based on patient's age to complete this topic
[2024-12-19 19:44] LABS: Hematocrit 54.4 % (42.0-52.0); Hemoglobin 16.7 g/dL (14.0-18.0); Mean Corpuscular HGB Conc 30.7 g/dl (32-36); Mean Corpuscular Hemoglobin 28.5 pg (26-34); Mean Corpuscular Volume 93.0 fl (80-100); Platelet Count Result 188 k/mm3 (150-375); Red Blood Count 5.85 M/mm3 (4.6-6.20); White Blood Count 7.1 K/mm3 (4.5-10.0)
[2024-12-19 19:47] LABS: Alanine Aminotransferase 31 U/L (6-50); Albumin Level 4.1 g/dL (3.5-5.1); Alkaline Phosphatase 111 U/L (38-126); Anion Gap 5 mmol/L (4-12); Aspartate Amino Transferase 129 U/L (17-59); Bilirubin,Total 1.1 mg/dL (0.2-1.3); Blood Urea Nitrogen 10 mg/dL (9-20); Calcium 9.3 mg/dL (8.4-10.2); Carbon Dioxide 28 mmol/L (22-30); Chloride 105 mmol/L (98-107); Cholesterol 80 mg/dL (0-200); Estimated Glomerular Filt Rate > 60; Glucose 97 mg/dL (65-110); HDL Direct 18 mg/dL; Potassium 5.0 mmol/L (3.4-5.0); Sodium 138 mmol/L (137-145); Total Protein 7.2 g/dL (6.3-8.2); Triglycerides 148 mg/dL (<150)
== END 2024-12-19 06:27 | disposition home or self-care (01) ==
LOC: ANHBWCLAB 06:27
PROVIDERS: PCP Nurse Practitioner Adult Health; Visit Provider Nurse Practitioner Adult Health
DX: R74.8 Abnormal levels of other serum enzymes (principal); I10 Essential (primary) hypertension; Z00.00 Encounter for general adult medical examination without abnormal findings; E78.5 Hyperlipidemia, unspecified
CPT/HCPCS: 36415; 80048; 80061; 80076; 85027